=== PATIENT | male | born 1955 | race African-American/Black ===

== ENCOUNTER 2017-06-23 21:52 | Inpatient (IN) | payer OTHER ==
--- NOTE | 2017-06-23 22:05 | PDOC ---
History of Present Illness - History of Present Illness Initial Comments: 06/23/17 22:59 The patient is a 61-year-old male, with a significant past medical history of HTN and CHF, who presents to the ED with shortness of breath that began this afternoon. The patient works at a post office and states that his boss called 911 when when his shortness of breath worsened. [facility] arrived to the scene and transported the patient to the ED. On exam, the patient denies any fever, chills, cough, or headache. He denies any chest pain or palpitations. He reports that he has been noncompliant with his medications for approximately 2 weeks. PCP: Dr. Morteza Collado Social Hx: The patient reports occasional alcohol use. <Noelle Patel - Last Filed: 06/24/17 00:08> <Angel An - Last Filed: 06/24/17 01:38> - General Chief Complaint: Shortness of Breath Stated Complaint: SOB Time Seen by Provider: 06/23/17 22:05 Past History <Noelle Patel - Last Filed: 06/24/17 00:08> - Past Medical History CHF: Yes HTN: Yes - Immunization History Immunization Up to Date: Yes - Suicide/Smoking/Psychosocial Hx Smoking Status: No Smoking History: Never smoked Number of Cigarettes Smoked Daily: 0 Hx Alcohol Use: No Drug/Substance Use Hx: No Substance Use Type: None Hx Substance Use Treatment: No <Angel An - Last Filed: 06/24/17 01:38> - Past Medical History Allergies/Adverse Reactions: Allergies Allergy/AdvReac Type Severity Reaction Status Date / Time No Known Allergies Allergy Verified 06/23/17 22:09 Home Medications: Ambulatory Orders NK [No Known Home Medication] 06/23/17 Review of Systems - Review of Systems Able to Perform ROS?: Yes Comments:: 06/23/17 23:00 CONSTITUTIONAL: No fever, no chills, no fatigue EYES: No visual changes ENT: No ear pain, no sore throat CARDIOVASCULAR: No chest pain, no palpitations RESPIRATORY: (+)Shortness of breath. No cough GI: No abdominal pain, no nausea, no vomiting, no constipation, no diarrhea GENITOURINARY: No dysuria, no frequency, no hematuria MUSKULOSKELETAL: No backpain, no joint pain, no myalgias SKIN: No rash NEURO: No headache <Noelle Patel - Last Filed: 06/24/17 00:08> *Physical Exam - Vital Signs Last Vital Signs Temp Pulse Resp BP Pulse Ox 98.3 F 95 H 22 135/78 93 L 06/23/17 21:55 06/23/17 21:55 06/23/17 21:55 06/23/17 21:55 06/23/17 21:55 - Physical Exam Comments: 06/23/17 23:01 CONSTITUTIONAL: Well-appearing; well-nourished; in no apparent distress HEAD: Normocephalic; atraumatic EYES: PERRL; EOM intact ENMT: External appears normal; normal oropharynx NECK: Supple; non-tender; no cervical lymphadenopathy CARD: Normal S1, S2; no murmurs, rubs, or gallops RESP: (+)Tachypnic, speaking short phrases only, Decreased breath sounds at right base ABD: Soft, non-distended; non-tender; no palpable organomegaly, no palpable hernias EXT: (+)+1 pitting edema lower extremities bilaterally. Normal ROM in all four extremities; non-tender to palpation; distal pulses intact SKIN: Warm, dry, no rash NEURO: No focal neurological deficiencies. <Noelle Patel - Last Filed: 06/24/17 00:08> Heart Score/ECG Review - ECG Intrepretation Comment:: 06/23/17 23:01 EKG was reviewed by Dr. An at 22:47. Impression: Normal sinus rhythm. Voltage criteria for left ventricular hypertrophy. T wave abnormality, consider inferolateral ischemia. Prolonged QT. <Noelle Patel - Last Filed: 06/24/17 00:08> ED Treatment Course - LABORATORY CBC & Chemistry Diagram: 06/23/17 22:45 06/23/17 22:45 <Noelle Patel - Last Filed: 06/24/17 00:08> - LABORATORY CBC & Chemistry Diagram: 06/23/17 22:45 06/23/17 22:45 <Angel An - Last Filed: 06/24/17 01:38> Medical Decision Making - Medical Decision Making 06/24/17 00:32 atient is 61-year-old male with history of heart failure (noncompli) presents tertion that became more pronounced on the day of arrival. Patient denies chest par/chills/nausea/voiting/melena/ bright red blood per rectum. On initial evaluation, patient is noted to be tachypneic and dyspneic, with oxygen saturation of 86% on room air, improving to 94% on supplemental O2 via nasal cannula at 2 L/m. Patient is noted to be afebrile and normotensive. Patient's chest x-ray reveals cardiomegaly, cephalization, bilateral pleural effusions ( right greater than left), interstitial edema, curly B-lines, bilaterally prominent franky and fluid in the fissure on the right. EKG shows normal sinus rhythm at a rate of 90, with LVH and diffuse T-wave abnormalities likely related to LVH and strain. Patient's d-dimer is also noted to be elevated. Differential diagnoses includes PE versus acute CHF exacerbation versus ACS. First set of cardiac enzymes within normal limit. Patient has received 40 mg of IV Lasix and has diuresis 1200 mL of clear urine at this time. Will obtain CTA of chest to rule out PE. Will admit to telemetry further evaluation and treatment. We will anticoagulate if the CT is noted to be positive for PE. 06/24/17 01:35 Patient reassessed. Patient is resting comfortably. His tachypnea and dyspnea have resolved. Oxygen saturation is noted to be 100% on 4 L via nasal cannula. We'll decrease supplemental O2 to 2 L/m. Patient has diuresed over 1400 mL of clear urine. CT of chest shows no evidence of acute PE. 4.9 cm aneurysmal dilation of ascending aorta is noted. Bilateral upper lobe infiltrates are identified by radiology which are likely related to acute CHF and do not represent an acute infectious process. Patient is afebrile without any cough or sputum production at this time. CBC shows no evidence of leukocytosis. Patient will be admitted to cardiac telemetry for serial cardiac enzymes, continue his diuresis and cardiology evaluation. <Angel An - Last Filed: 06/24/17 01:38> *DC/Admit/Observation/Transfer - Attestations Scribe Attestion: 06/24/17 00:28 Documentation prepared by Noelle Patel, acting as certified medical technician assistant for Angel An MD. <Noelle Patel - Last Filed: 06/24/17 00:08> - Discharge Dispostion Admit: Yes - Attestations Physician Attestion: 06/24/17 00:32 The documentation was prepared by the scribe under my direct supervision. I have reviewed the documentation which correctly represents the findings, medical decision-making and critical action taken by me. <Angel An - Last Filed: 06/24/17 01:38> Diagnosis at time of Disposition: Acute CHF Qualifiers: Congestive heart failure type: unspecified Qualified Code(s): I50.9 - Heart failure, unspecified - Discharge Dispostion Condition at time of disposition: Fair - Referrals Referrals: Morteza Collado MD [Primary Care Provider] - - Patient Instructions - Post Discharge Activity
[2017-06-23] MEDS ORDERED: FUROSEMIDE 40 MG/4 ML INJECTABLE VIAL IVPUSH ONE (22:34)
[2017-06-23] MEDS ORDERED: FUROSEMIDE 40 MG/4 ML INJECTABLE VIAL ONE (22:48)
[2017-06-23 22:59] LABS: BASO % 0.3 % (0-2.0); EOS % 0.5 % (0-4.5); HEMATOCRIT 37.4 % (35.4-49); HEMOGLOBIN 12.1 GM/dL (11.7-16.9); MCH 29.9 pg (25.7-33.7); MCHC 32.5 g/dl (32.0-35.9); MEAN CELL VOLUME 91.9 fl (80-96); MEAN PLT VOLUME 10.4 fl (7.5-11.1); NEUT % 73.2 % (42.8-82.8); PLATELET COUNT 206 K/MM3 (134-434); RBC 4.07 M/mm3 (4.00-5.60)
[2017-06-23 23:19] LABS: ALBUMIN 3.5 g/dl (3.4-5.0); ANION GAP 8 (8-16); BILIRUBIN,TOTAL 1.8 mg/dL (0.2-1.0); BLOOD UREA NITROGEN 12 mg/dL (7-18); CALCIUM 8.7 mg/dL (8.5-10.1); CHLORIDE 103 mmol/L (98-107); CO2 31 mmol/L (21-32); CREATININE 1.1 mg/dL (0.7-1.3); GLUCOSE,RANDOM 123 mg/dL (74-106); POTASSIUM 4.1 mmol/L (3.5-5.1); SGOT/AST 23 U/L (15-37); SGPT/ALT 39 U/L (12-78); SODIUM 142 mmol/L (136-145); TOT PROT 6.8 g/dl (6.4-8.2)
[2017-06-23 23:21] LABS: ALK PHOS 72 U/L (45-117)
[2017-06-23 23:49] LABS: INR 1.12 (0.82-1.09); PROTHROMBIN TIME (PATIENT) 12.7 SEC (9.98-11.88)
[2017-06-24 02:36] LABS: N-TERMINAL BNP 1943.46 pg/ml (5-125)
[2017-06-24] MEDS ORDERED: ACETAMINOPHEN 325 MG TABLET (FP) PO PRN (02:59)
--- NOTE | 2017-06-24 03:00 | HP ---
CHIEF COMPLAINT: "I couldn't breathe at work" PCP: none. 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 Patient has been in usual health NYHA 0 until last night when he started feeling fatigued. Today at work he suddenly became severely sob and his employer called EMS. 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 He reports having a history of abnormal EKG since youth as well as a murmur. 20 years ago he underwent a positive stress test and a negative cardiac cath w/p stent placement due to his abnormal EKG findings. He was first diagnosed with CHF 12 years ago and has been on coreg and "3 other medications", with biannual TTE's until about a year ago, when his got sick and he began neglecting himself. He states that the TTE from 1 yr ago was stable. He stopped taking all of his cardiac meds in Jan. He reports salty eating fast food 3 days ago. Initially in ED O2 sat was 92% on ra, was placed on 4LNC but reduced to 2L after diuresis and symptomatic improvement.He denies CP, cough, orthopnea (sleeps on 1 pillow) palpitations, syncope, irregular heart rate, n/v, diaphoresis, loss of appetite, weight gain, LE edema. He denies f/c, rhinorrhea, sore throat, diarrhea, dysuria. ER course was notable for: (1)labs: elevated BNP 1900, EKG: LV hypertrophy with strain patern, nonspecific t inversion in lateral leads (2)CTA negative for PE, cardiomegaly, large LV, ascending aorta aneurysm 4.9 cm. CXR: large b/l pleural effusions L>R, cardiomegaly, vascular engorgement (3)lasix iv 40 Recent Travel:denies PAST MEDICAL HISTORY:as above PAST SURGICAL HISTORY: cholecystectoly, cardiac cath Social History: lives at home alone, distressed about sick in hospice Smoking: past heavy smoker 40 pack yrs, quit 15 yrs ago Alcohol:denies Drugs: denies Family History: htn Allergies No Known Allergies Allergy (Verified 06/23/17 22:09) HOME MEDICATIONS: Home Medications Medication Instructions Recorded NK [No Known Home Medication] 06/23/17 REVIEW OF SYSTEMS CONSTITUTIONAL: Absent: fever, chills, diaphoresis, generalized weakness, malaise, loss of appetite, weight change HEENT: Absent: rhinorrhea, nasal congestion, throat pain CARDIOVASCULAR: Absent: chest pain, syncope, palpitations, irregular heart rate, lightheadedness , peripheral edema RESPIRATORY: Absent: cough, orthopnea, wheezing, stridor, hemoptysis GASTROINTESTINAL: Absent: abdominal pain, abdominal distension, nausea, vomiting, diarrhea, constipation, melena, hematochezia GENITOURINARY: Absent: dysuria MUSCULOSKELETAL: Absent: back pain, neck pain SKIN: Absent: rash, itching, pallor HEMATOLOGIC/IMMUNOLOGIC: Absent: easy bleeding, easy bruising ENDOCRINE: Absent: unexplained weight gain, unexplained weight loss, heat intolerance, cold intolerance NEUROLOGIC: Absent: headache, focal weakness or paresthesias PSYCHIATRIC: Absent: anxiety PHYSICAL EXAMINATION Vital Signs - 24 hr 06/23/17 21:55 Temperature 98.3 F Pulse Rate 95 H Respiratory 22 Rate Blood Pressure 135/78 O2 Sat by Pulse 93 L Oximetry (%) GENERAL: Awake, alert, and fully oriented, in no acute distress. HEAD: Normal with no signs of trauma. EYES: Pupils equal, round and reactive to light, extraocular movements intact, sclera anicteric, conjunctiva clear. No lid lag. EARS, NOSE, THROAT: Moist mucous membranes. NECK: supple, + hepatojugular reflex at 30 degree recline LUNGS:reduced breath sounds at bases HEART: Regular rate and rhythm, normal S1 and S2 grade 3 systolic and diastolic murmur ABDOMEN: Soft, nontender, not distended, normoactive bowel sounds, no guarding, no rebound, no masses. MUSCULOSKELETAL: no CVA tenderness. UPPER EXTREMITIES: 2+ pulses, warm, well-perfused. No peripheral edema. LOWER EXTREMITIES: 1+ pulses, warm, well-perfused. No calf tenderness. trace peripheral edema. NEUROLOGICAL: Cranial nerves II-XII intact. Normal speech. PSYCHIATRIC: Cooperative. Good eye contact. slightly depressed mood and flattened affect. SKIN: Warm, dry Laboratory Results - last 24 hr 06/23/17 06/23/17 06/23/17 22:45 22:45 22:45 WBC 9.0 RBC 4.07 Hgb 12.1 Hct 37.4 MCV 91.9 MCH 29.9 MCHC 32.5 RDW 14.0 Plt Count 206 MPV 10.4 Neutrophils % 73.2 D Lymphocytes % 15.0 D Monocytes % 11.0 H Eosinophils % 0.5 Basophils % 0.3 PT with INR 12.70 H INR 1.12 D-Dimer 1326 H Sodium 142 Potassium 4.1 Chloride 103 Carbon Dioxide 31 Anion Gap 8 BUN 12 Creatinine 1.1 Creat Clearance w eGFR > 60 Random Glucose 123 H Calcium 8.7 Total Bilirubin 1.8 H AST 23 D ALT 39 Alkaline Phosphatase 72 D Creatine Kinase 400 H Creatine Kinase Index 0.6 CK-MB (CK-2) 2.424 Troponin I 0.03 B-Natriuretic Peptide 1943.46 H Total Protein 6.8 Albumin 3.5 ASSESSMENT/PLAN: This is a 61 yo M with PMH of CHF, BIBEMs due to severe sob. Acute CHF exacerbation NYHA 3 -etiology presumable nonishemic however unsure -EKG consistent with LV hypertrophy and strain, nonspecific t changes -trop negatie x1, trend 1 more -CXR large b/l pleural effusions L>R, cardiomegaly, vascular engorgement -DDimer 1300, CTA negative for PE, cardiomegaly, large LV, ascending aorta aneurysm 4.9 cm. -will need regular thoracic surg f/u -bedside TTE done by resident: dilated hypokinetic LV with septal hypertrophy, large RV -TTE AM -cardiology consult -lasix 40 iv bid; monitor UO (so far diuresed 2L clear urine) -coreg 3.125 bid starting AM -close f/u of bp and O2 sat -strict i and o, daily weights -will need to be placed on angela or arb or entresto and possibly aldactone over hospital course -TFT's, a1c, lipid panel -low na diet -screen for depression Dispo: admit tele Problem List - Problem (1) Acute CHF Code(s): I50.9 - HEART FAILURE, UNSPECIFIED Qualifiers: Congestive heart failure type: unspecified Qualified Code(s): I50.9 - Heart failure, unspecified (2) Acute on chronic congestive heart failure Code(s): I50.9 - HEART FAILURE, UNSPECIFIED Qualifiers: Congestive heart failure type: combined Qualified Code(s): I50.43 - Acute on chronic combined systolic (congestive) and diastolic (congestive) heart failure (3) HTN (hypertension) Code(s): I10 - ESSENTIAL (PRIMARY) HYPERTENSION Qualifiers: Hypertension type: essential hypertension Qualified Code(s): I10 - Essential (primary) hypertension (4) Hypertensive cardiomegaly with heart failure Code(s): I11.0 - HYPERTENSIVE HEART DISEASE WITH HEART FAILURE (5) Noncompliance with medication regimen Code(s): Z91.14 - PATIENT'S OTHER NONCOMPLIANCE WITH MEDICATION REGIMEN (6) Thoracic ascending aortic aneurysm Code(s): I71.2 - THORACIC AORTIC ANEURYSM, WITHOUT RUPTURE Visit type - Emergency Visit Emergency Visit: Yes ED Registration Date: 06/24/17 Care time: The patient presented to the Emergency Department on the above date and was hospitalized for further evaluation of their emergent condition. - New Patient This patient is new to me today: Yes Date on this admission: 06/28/17 - Critical Care Critical Care patient: No
--- NOTE | 2017-06-24 03:25 | HP ---
CHIEF COMPLAINT: Acute SOB PCP: Dr. Collado HISTORY OF PRESENT ILLNESS: 61 yo w/ pmh of CHF, heart murmur, who was BIBEMS from work after becoming acutely SOB. Pt has been in his normal state of health with unlimited exercise tolerance last night, when he endorse some mild fatigue. 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 Of note, pt was diagnosed with CHF ~10 years ago and has been taking BB, two diuretics and a 4th medication for his heart. However, Pt has been non-compliant with his medication since Jan, as his is in hospice and he has neglected to refill his prescriptions. Etiology of CHF is unknown, however pt states he underwent a positive stress test 15-20 years ago and received a cardiac catheterization after that, which was normal. He received an ECHO one year ago, which he stated had no change from his baseline. Pt states he follows with a Dr. Villalobos and received Echos every 6 months. Pt reports eating [employer] 3 days ago. Denies fevers/chills, SQUIRES/dizziness, CP, cough, PND, orthopnea, claudications, palpitations, LE edema, N/V, abdominal pain, weight gain or decreased appetite. Denies any infectious symptoms such as sore throat, dyuria, diarrhea, rhinorrhe, rigors. ER course was notable for: (1)CXR w/ BL vascular congestion, pleural effusions; satting 92% on RA, placed on 4L NC and given 40mg Lasix IV with improvement to 100% (2)Chest CT negative for PE, + for LVH; Ddimer 1326 (3)BNP 1943 Recent Travel: None PAST MEDICAL HISTORY: HTN CHF Heart Murmur PAST SURGICAL HISTORY: Lap Beatris Cardiac cath (15 years ago) Social History: Smoking: Denies Alcohol: Denies Drugs: Denies Family History: Hypertension Allergies No Known Allergies Allergy (Verified 06/23/17 22:09) HOME MEDICATIONS: Home Medications Medication Instructions Recorded NK [No Known Home Medication] 06/23/17 REVIEW OF SYSTEMS CONSTITUTIONAL: Absent: fever, chills, diaphoresis, generalized weakness, malaise, loss of appetite, weight change HEENT: Absent: rhinorrhea, nasal congestion, throat pain, throat swelling, difficulty swallowing, mouth swelling, ear pain, eye pain, visual changes CARDIOVASCULAR: Absent: chest pain, syncope, palpitations, irregular heart rate, lightheadedness , peripheral edema RESPIRATORY: shortness of breath, Absent: cough, dyspnea with exertion, orthopnea, wheezing, stridor, hemoptysis GASTROINTESTINAL: Absent: abdominal pain, abdominal distension, nausea, vomiting, diarrhea, constipation, melena, hematochezia GENITOURINARY: Absent: dysuria, frequency, urgency, hesitancy, hematuria, flank pain, genital pain MUSCULOSKELETAL: Absent: myalgia, arthralgia, joint swelling, back pain, neck pain SKIN: Absent: rash, itching, pallor HEMATOLOGIC/IMMUNOLOGIC: Absent: easy bleeding, easy bruising, lymphadenopathy, frequent infections ENDOCRINE: Absent: unexplained weight gain, unexplained weight loss, heat intolerance, cold intolerance NEUROLOGIC: Absent: headache, focal weakness or paresthesias, dizziness, unsteady gait, seizure, mental status changes, bladder or bowel incontinence PSYCHIATRIC: Absent: anxiety, depression, suicidal or homicidal ideation, hallucinations. PHYSICAL EXAMINATION Vital Signs - 24 hr Intake & Output 06/21/17 06/22/17 06/23/17 06/24/17 23:59 23:59 23:59 23:59 Output Total 800 500 Balance -800 -500 Weight 104.326 kg 06/23/17 06/24/17 21:55 03:01 Temperature 98.3 F Pulse Rate 95 H Pulse Rate [ 83 Left] Respiratory 22 18 Rate Blood Pressure 135/78 Blood Pressure 125/68 [Right Arm] O2 Sat by Pulse 93 L 97 Oximetry (%) GENERAL: Middle aged man lying in bed, in NAD. Awake, alert, and fully oriented , in no acute distress. HEAD: Alopecia. Normal with no signs of trauma. EYES: Mild proptosis BL. Pupils equal, round and reactive to light, extraocular movements intact, sclera anicteric, conjunctiva clear. No lid lag. EARS, NOSE, THROAT: Ears normal, nares patent, oropharynx clear without exudates. Moist mucous membranes. NECK: +HJ reflux. Normal range of motion, supple without lymphadenopathy, JVD, or masses. LUNGS: Decreased lung sounds at bases. Trace crackles diffusely. No wheezes. No accessory muscle use. HEART: 3/6 Systolic and diastolic murmur, best appreciated at RUSB, nonradiating. Regular rate and rhythm, normal S1 and S2. ABDOMEN: Globular, Soft, nontender, not distended, normoactive bowel sounds, no guarding, no rebound, no masses. No hepatomegaly or splenomegaly. Negative fluid wave. MUSCULOSKELETAL: Normal range of motion at all joints. No bony deformities or tenderness. No CVA tenderness. UPPER EXTREMITIES: 2+ pulses, warm, well-perfused. No cyanosis. No clubbing. No peripheral edema. LOWER EXTREMITIES: 1+ non-pitting edema BL. 2+ pulses, warm, well-perfused. No calf tenderness. NEUROLOGICAL: Cranial nerves II-XII intact. Normal speech. Gait not evaluated. PSYCHIATRIC: Cooperative. Good eye contact. Appropriate mood and affect. SKIN: Warm, dry, normal turgor, no rashes or lesions noted, normal capillary refill. Laboratory Results - last 24 hr CBC, BMP 06/23/17 22:45 06/23/17 22:45 06/23/17 06/23/17 06/23/17 22:45 22:45 22:45 WBC 9.0 RBC 4.07 Hgb 12.1 Hct 37.4 MCV 91.9 MCH 29.9 MCHC 32.5 RDW 14.0 Plt Count 206 MPV 10.4 Neutrophils % 73.2 D Lymphocytes % 15.0 D Monocytes % 11.0 H Eosinophils % 0.5 Basophils % 0.3 PT with INR 12.70 H INR 1.12 D-Dimer 1326 H Sodium 142 Potassium 4.1 Chloride 103 Carbon Dioxide 31 Anion Gap 8 BUN 12 Creatinine 1.1 Creat Clearance w eGFR > 60 Random Glucose 123 H Calcium 8.7 Total Bilirubin 1.8 H AST 23 D ALT 39 Alkaline Phosphatase 72 D Creatine Kinase 400 H Creatine Kinase Index 0.6 CK-MB (CK-2) 2.424 Troponin I 0.03 B-Natriuretic Peptide 1943.46 H Total Protein 6.8 Albumin 3.5 Microbiology 06/23/17 22:55 Nasopharyngeal Swab Influenza Types A,B Antigen (YOLIS) - Final 06/23/17 22:55 Nasopharyngeal Swab - Final EKG 06/23 - suggestive of LVH/strain; Diffuse TW changes CXR 06/23: BL vascular condition, pleural effusions. Cardiomegaly Chest CT-PE 06/24 - Negative for PE; LVH; Large BL pleural effusions; Ascending Aortic aneurysm 4.9 cm Bedside TTE done by resident: dilated hypokinetic LV with septal hypertrophy, large RV ASSESSMENT/PLAN: 61 yo w/ pmh of CHF, heart murmur, who was BIBEMS from work after becoming acutely SOB. #Acute on Chronic CHF exacerbation - BNP 1900, CXR with BL vascular congestion and pleural effusions; NYHA class 3 - Cardiology consulted - Lasix 40 BID - Coreg 3.125 BID - Enalapril 5mg daily - Repeat Echo - Serial CXRs - Strict Is and Os - Low sodium, fluid restricted diet - Cardiac monitoring - O2 support as needed - Daily Weights - Tight BP control - TFTs, A1C - CT chest negative for PE; elevated Ddimer 1326 #CAD - + stress test in past; Initial trop negative; No ST changes on EKG - ASA daily - Lipid profile - f/u A1C -Repeat EKG' obtain prior recs #Ascending Aortic Aneurysm - 4.9cm in diameter on CT - recommend CT surgery consult/ outpt follow-up - Tight BP control #HTN - start enalapril PPX HSQ FEN limit PO fluid <2L Daily BMPs, Mg, Phos Low sodium diet Plan discussed with attending, Dr. Jace Mccray, PGY1 Visit type - Emergency Visit Emergency Visit: Yes ED Registration Date: 06/24/17 Care time: The patient presented to the Emergency Department on the above date and was hospitalized for further evaluation of their emergent condition. - New Patient This patient is new to me today: Yes Date on this admission: 06/24/17 - Critical Care Critical Care patient: No
[2017-06-24 04:07] VITALS: BMI 29.4
[2017-06-24] MEDS: HEPARIN NA (PORCINE) 5,000 UNITS/ML 1ML VIAL SQ SCH ×3 (06:09→22:10)
[2017-06-24] MEDS: FUROSEMIDE 40 MG/4 ML INJECTABLE VIAL IVPUSH SCH ×2 (06:09→14:02)
--- NOTE | 2017-06-24 06:31 | PN ---
Teaching Attending Note Name of Resident: David Mccray ATTENDING PHYSICIAN STATEMENT I saw and evaluated the patient. Chart, data, imaging reviewed. I reviewed the resident's note and discussed the case with the resident. I agree with the resident's findings and plan as documented. SUBJECTIVE: 61-year-old -citizen of [place] man, with a significant past medical history of HTN and CHF presented c/o 1 day of shortness of breath and decreased exercise tolerance. Patient has been off his cardiac medications for several weeks and has missed appointments with his PMD. He denied any chest pain. He sleeps only on one pillow. Denied any significant weight changes. Reports a "stable" echo about one year ago. In the ED , patient had an oxygen saturation of low 90s, was placed on supplemental oxygen. CT of chest ruled out PE. He reports improvement in symptoms after IV Furosemide. OBJECTIVE: Last Vital Signs Temp Pulse Resp BP Pulse Ox 97.8 F 94 H 18 136/65 99 06/24/17 04:01 06/24/17 04:01 06/24/17 04:01 06/24/17 04:01 06/24/17 04:01 General - nad, aaox3, appears comfortable heent- at, nc, moist oral mucosa neck- supply, no JVD appreciated CV-s1+s2+ RRR, gallop+ Chest - decreased breath sounds b/l R>L Abdomen -obese, BS+, no masses appreciated Ext- 2+ pitting edema in lower extremities Abnormal Lab Results 06/23/17 06/23/17 06/23/17 22:45 22:45 22:45 Monocytes % 11.0 H PT with INR 12.70 H D-Dimer 1326 H Random Glucose 123 H Total Bilirubin 1.8 H Creatine Kinase 400 H B-Natriuretic Peptide 1943.[address]- negative for PE, showed b/l pleural effusion, pulmonary vascular congestion. EKG - NSR, diffuse T wave inversions, no ST elevations or depressions ASSESSMENT AND PLAN: #CHF exacerbation 2/2 to medication noncompliance and diet noncompliance. High BNP, B/l pleural effusions and pulmonary vascular congestion are suggestive of CHF. +physical exam findings such as decreased breath sounds at bases, +gallop, pedal edema support this diagnosis as well. PE was r/o. R/o ACS with serial troponins. -admit to telemetry -trend troponin -cardiology evaluation -transthoracic echo -repeat EKG -I/O -daily weight -2g Na diet -send A1c -Furosemide 40mg IV bid -B emmanuel -ACEi -spironolactone -ASA #DVT ppx - heparin sc
[2017-06-24 07:42] LABS: HEMATOCRIT 39.7 % (35.4-49); HEMOGLOBIN 12.9 GM/dL (11.7-16.9); MCH 29.9 pg (25.7-33.7); MCHC 32.4 g/dl (32.0-35.9); MEAN CELL VOLUME 92.1 fl (80-96); MEAN PLT VOLUME 10.2 fl (7.5-11.1); PLATELET COUNT 205 K/MM3 (134-434); RBC 4.31 M/mm3 (4.00-5.60); RDW 14.2 % (11.9-15.9); WHITE BLOOD COUNT 7.2 K/mm3 (4.0-10.0)
[2017-06-24 08:03] LABS: CHLORIDE 103 mmol/L (98-107); POTASSIUM 3.8 mmol/L (3.5-5.1); SODIUM 142 mmol/L (136-145)
[2017-06-24 08:09] LABS: ALBUMIN 3.7 g/dl (3.4-5.0); ALK PHOS 80 U/L (45-117); ANION GAP 9 (8-16); BILIRUBIN,TOTAL 2.4 mg/dL (0.2-1.0); BLOOD UREA NITROGEN 11 mg/dL (7-18); CALCIUM 8.5 mg/dL (8.5-10.1); CHOLESTEROL 149 mg/dL (50-200); CO2 30 mmol/L (21-32); CREATININE 1.1 mg/dL (0.7-1.3); GLUCOSE,RANDOM 111 mg/dL (74-106); HDL CHOLESTEROL 52 mg/dL (40-60); LDL CHOLESTEROL (ONLY SJRH) 94 mg/dL (5-100); N-TERMINAL BNP 2116.79 pg/ml (5-125); PHOSPHOROUS 3.6 mg/dL (2.5-4.9); SGOT/AST 21 U/L (15-37); SGPT/ALT 37 U/L (12-78); TOT PROT 6.8 g/dl (6.4-8.2); TRIGLYCERIDES 62 mg/dL (35-160)
[2017-06-24 08:23] LABS: INR 1.16 (0.82-1.09); PROTHROMBIN TIME (PATIENT) 13.1 SEC (9.98-11.88)
[2017-06-24] MEDS ORDERED: PT OWN MED DRAWER 7, Y5N ONE (08:55)
[2017-06-24] MEDS ORDERED: CARVEDILOL 3.125 MG TABLET (FP) PO SCH (10:00)
[2017-06-24] MEDS: ASPIRIN 81 MG CHEWABLE TABLETS PO SCH (10:07)
--- NOTE | 2017-06-24 11:28 | HOSP ---
Subjective - Review of Symptoms Subjective: states he asymptomatic. no longer feeling short of breath but has not gotten out of bed today. states he has not taken his medication in several months as hes been taking care of his who is currently on hospice. states he lives very active lifestyle which he has not been able to maintain. denies CP, SOB, fever, chills, cough, orthopnea, N/V/C/D Current Medications Generic Name Dose Route Start Last Admin Trade Name Freq PRN Reason Stop Dose Admin Acetaminophen 650 mg 06/24/17 02:59 Tylenol - PO Q6H PRN PAIN LEVEL 4 - 6 Aspirin 81 mg 06/24/17 10:00 06/24/17 10:07 Asa - PO 81 mg DAILY BONNIE Administration Carvedilol 3.125 mg 06/24/17 10:00 06/24/17 10:07 Coreg - PO 3.125 mg BID BONNIE Administration Enalapril Maleate 5 mg 06/24/17 10:00 Vasotec - PO DAILY BONNIE Furosemide 40 mg 06/24/17 06:00 06/24/17 06:09 Lasix Injection - IVPUSH 40 mg BID@0600,1400 BONNIE Administration Heparin Sodium (Porcine) 5,000 unit 06/24/17 06:00 06/24/17 06:09 Heparin - SQ 5,000 unit TID BONNIE Administration Last Vital Signs Temp Pulse Resp BP Pulse Ox 97.8 F 80 18 122/56 99 06/24/17 10:00 06/24/17 10:00 06/24/17 10:00 06/24/17 10:00 06/24/17 10:00 Intake & Output 06/21/17 06/22/17 06/23/17 06/24/17 23:59 23:59 23:59 23:59 Intake Total 260 Output Total 800 2805 Balance -800 -2545 Weight 230 lb 222 lb 8 oz General NAD CV S1 S2 RRR no murmur/rub/gallop Lungs CTA B/L no wheezing/rales/rhonchi Abdomen soft NT/ND Extremities no pedal edema CBCD WBC 7.2 K/mm3 (4.0-10.0) 06/24/17 06:00 RBC 4.31 M/mm3 (4.00-5.60) 06/24/17 06:00 Hgb 12.9 GM/dL (11.7-16.9) 06/24/17 06:00 Hct 39.7 % (35.4-49) 06/24/17 06:00 MCV 92.1 fl (80-96) 06/24/17 06:00 MCHC 32.4 g/dl (32.0-35.9) 06/24/17 06:00 RDW 14.2 % (11.9-15.9) 06/24/17 06:00 Plt Count 205 K/MM3 (134-434) 06/24/17 06:00 MPV 10.2 fl (7.5-11.1) 06/24/17 06:00 CMP Sodium 142 mmol/L (136-145) 06/24/17 06:00 Potassium 3.8 mmol/L (3.5-5.1) 06/24/17 06:00 Chloride 103 mmol/L (98-107) 06/24/17 06:00 Carbon Dioxide 30 mmol/L (21-32) 06/24/17 06:00 Anion Gap 9 (8-16) 06/24/17 06:00 BUN 11 mg/dL (7-18) 06/24/17 06:00 Creatinine 1.1 mg/dL (0.7-1.3) 06/24/17 06:00 Creat Clearance w eGFR > 60 (>60) 06/24/17 06:00 Random Glucose 111 mg/dL (74-106) H 06/24/17 06:00 Calcium 8.5 mg/dL (8.5-10.1) 06/24/17 06:00 Total Bilirubin 2.4 mg/dL (0.2-1.0) H D 06/24/17 06:00 AST 21 U/L (15-37) 06/24/17 06:00 ALT 37 U/L (12-78) 06/24/17 06:00 Alkaline Phosphatase 80 U/L (45-117) 06/24/17 06:00 Total Protein 6.8 g/dl (6.4-8.2) 06/24/17 06:00 Albumin 3.7 g/dl (3.4-5.0) 06/24/17 06:00 CARDIAC ENZYMES Creatine Kinase 400 IU/L (39-308) H 06/23/17 22:45 Troponin I 0.04 ng/ml (0.00-0.05) D 06/24/17 06:00 A/P 61yo M with PMH HTN and CHF presented to the ER with dyspnea x1day 1. Acute CHF- unknown systolic or diastolic as no previous echos however suspect systolic given home medications. no change in weight. cont lasix 40mg BID IV, confirm home medications with pharmacy and re-start them. echo ordered. cardio on board 2. Acute hypoxic respiratory failure- due to volume overload. currently 96% on RA. encouraged to get up and ambulate to see if symptoms 3. Ascending Aortic aneurysm- 4.7cm. asymptomatic. no known hx. will need repeat imaging 4. CKD- stable 5. HTN- controlled. 6. DVT ppx- hep sq 7. pt would prefer to go home if able to due to his ailing who is on hospice. will d/w cardio about possible letting him leave in AM and return for echo this week. Claims he would comply 8. called [facility] and confirmed home medications. states its been 3 months since he picked up. will re-start medications lisinopril 40mg lasix 40mg spirolactone 25mg Coreg 12.5mg BID Physical Examination Vital Signs: Vital Signs Temperature 97.8 F 06/24/17 10:00 Pulse Rate 80 06/24/17 10:00 Respiratory Rate 18 06/24/17 10:00 Blood Pressure 122/56 06/24/17 10:00 O2 Sat by Pulse Oximetry (%) 99 06/24/17 10:00 Labs: CBC, BMP 06/24/17 06:00 06/24/17 06:00
--- NOTE | 2017-06-24 12:10 | EKG ---
Test Reason : Blood Pressure : / mmHG Vent. Rate : 090 BPM Atrial Rate : 090 BPM P-R Int : 186 ms QRS Dur : 100 ms QT Int : 398 ms P-R-T Axes : 055 027 216 degrees QTc Int : 486 ms NORMAL SINUS RHYTHM VOLTAGE CRITERIA FOR LEFT VENTRICULAR HYPERTROPHY T WAVE ABNORMALITY, CONSIDER INFEROLATERAL ISCHEMIA PROLONGED QT ABNORMAL ECG Confirmed by MD PANCHO, RAFFI ([id number]) on 06/24/2017 12:09:57 PM Referred By: Confirmed By:RAFFI DELEON MD
--- NOTE | 2017-06-24 12:39 | CON.CARD ---
Consult Consult Specialty:: Cardiology Referred by:: Hospitalist Reason for Consultation:: Cardiac evaluation - History of Present Illness Chief Complaint: Shortness of breath History of Present Illness: Patient is a 61 year old male with underlying history of hypertension and congestive heart failure, was seen by Dr. Rickey Villalobos last saw him in February of last year, now present with worsening shortness of breath. He has been non-compliant with his medication since January when his became severely ill and currently is in hospice. He stopped taking all his medications. He has had cardiac work up including transthoracic echocardiogram, nuclear stress testing and cardiac catheterization in the past. Currently he feel better with absence of shortness of breath. He denies chest pain or palpitation. He denies paroxsmal nocturnal dysnea or orthopnea. He denies fever or chills. He denies nausea, vomiting, diarrhea or abdominal pain. Cardiology consultation was called for further evaluation. - History Source History Provided By: Patient, Medical Record Limitations to Obtaining History: No Limitations - Past Medical History Cardio/Vascular: Yes: CHF, HTN - Past Surgical History Past Surgical History: Yes: Cholecystectomy - Alcohol/Substance Use Hx Alcohol Use: No - Smoking History Smoking history: Never smoked Have you smoked in the past 12 months: No Aproximately how many cigarettes per day: 0 If you are a former smoker, when did you quit?: 2005 Home Medications - Allergies Allergies/Adverse Reactions: Allergies Allergy/AdvReac Type Severity Reaction Status Date / Time No Known Allergies Allergy Verified 06/23/17 22:09 - Home Medications Home Medications: Ambulatory Orders NK [No Known Home Medication] 06/23/17 Review of Systems - Review of Systems Constitutional: denies: Chills, Fever Eyes: reports: No Symptoms HENT: reports: No Symptoms Cardiovascular: reports: Shortness of Breath. denies: Chest Pain, Palpitations Respiratory: reports: SOB, SOB on Exertion. denies: Cough, Hemoptysis, Orthopnea, PND, Wheezing Gastrointestinal: denies: Abdominal Pain, Constipation, Diarrhea, Melena, Nausea , Rectal Bleeding, Vomiting Musculoskeletal: denies: Back Pain, Joint Pain Neurological: denies: Dizziness, Headache, Seizure, Syncope Endocrine: reports: No Symptoms Hematology/Lymphatic: reports: No Symptoms Vital Signs: Vital Signs Temperature 97.8 F 06/24/17 10:00 Pulse Rate 80 06/24/17 10:00 Respiratory Rate 18 06/24/17 10:00 Blood Pressure 122/56 06/24/17 10:00 O2 Sat by Pulse Oximetry (%) 99 06/24/17 10:00 Eyes: Yes: PERRL HENT: Yes: Atraumatic Neck: Yes: Supple Respiratory: Yes: Diminished Gastrointestinal: Yes: Normal Bowel Sounds, Soft. No: Tenderness Cardiovascular: Yes: Regular Rate and Rhythm. No: Gallop JVD: No Carotid Bruit: No PMI: Non-Displaced Heart Sounds: Yes: S1, S2, Clicks Murmur: Yes: Systolic Murmur, Grade 1 Edema: No - Other Data Labs, Other Data: CBC, BMP 06/24/17 06:00 06/24/17 06:00 INR, PTT INR 1.16 (0.82-1.09) H 06/24/17 06:00 Troponin, BNP 06/23/17 06/24/17 22:45 06:00 Troponin I 0.03 0.04 D B-Natriuretic Peptide 1943.46 H 2116.79 H Laboratory Results - last 24 hr 06/23/17 06/23/17 06/23/17 22:45 22:45 22:45 WBC 9.0 RBC 4.07 Hgb 12.1 Hct 37.4 MCV 91.9 MCH 29.9 MCHC 32.5 RDW 14.0 Plt Count 206 MPV 10.4 Neutrophils % 73.2 D Lymphocytes % 15.0 D Monocytes % 11.0 H Eosinophils % 0.5 Basophils % 0.3 PT with INR 12.70 H INR 1.12 D-Dimer 1326 H Sodium 142 Potassium 4.1 Chloride 103 Carbon Dioxide 31 Anion Gap 8 BUN 12 Creatinine 1.1 Creat Clearance w eGFR > 60 Random Glucose 123 H Hemoglobin A1c % Calcium 8.7 Phosphorus Magnesium Total Bilirubin 1.8 H AST 23 D ALT 39 Alkaline Phosphatase 72 D Creatine Kinase 400 H Creatine Kinase Index 0.6 CK-MB (CK-2) 2.424 Troponin I 0.03 B-Natriuretic Peptide 1943.46 H Total Protein 6.8 Albumin 3.5 Triglycerides Cholesterol Total LDL Cholesterol HDL Cholesterol 06/24/17 06/24/17 06/24/17 06:00 06:00 06:00 WBC 7.2 RBC 4.31 Hgb 12.9 Hct 39.7 MCV 92.1 MCH 29.9 MCHC 32.4 RDW 14.2 Plt Count 205 MPV 10.2 Neutrophils % Lymphocytes % Monocytes % Eosinophils % Basophils % PT with INR 13.10 H INR 1.16 H D-Dimer Sodium 142 Potassium 3.8 Chloride 103 Carbon Dioxide 30 Anion Gap 9 BUN 11 Creatinine 1.1 Creat Clearance w eGFR > 60 Random Glucose 111 H Hemoglobin A1c % Calcium 8.5 Phosphorus 3.6 Magnesium 2.0 Total Bilirubin 2.4 H D AST 21 ALT 37 Alkaline Phosphatase 80 Creatine Kinase Creatine Kinase Index CK-MB (CK-2) Troponin I 0.04 D B-Natriuretic Peptide 2116.79 H Total Protein 6.8 Albumin 3.7 Triglycerides 62 Cholesterol 149 Total LDL Cholesterol 94 HDL Cholesterol 52 Sinus rhythm, T wave abnormality in inferolateral leads Echo: Pending Imaging - Results Chest X-ray: Report Reviewed (Atelectasis) EKG: Report Reviewed Problem List - Problems (1) Acute on chronic congestive heart failure Code(s): I50.9 - HEART FAILURE, UNSPECIFIED Qualifiers: Congestive heart failure type: combined Qualified Code(s): I50.43 - Acute on chronic combined systolic (congestive) and diastolic (congestive) heart failure (2) HTN (hypertension) Code(s): I10 - ESSENTIAL (PRIMARY) HYPERTENSION Qualifiers: Hypertension type: essential hypertension Qualified Code(s): I10 - Essential (primary) hypertension Assessment/Plan 1. Acute on chronic LV systolic +/- diastolic dysfunction with class II NYHA heart failure 2. Hypertension PLAN: 1. Continue diuretics and monitor I/Os and daily weight 2. Continue Carvedilol and Enalapril as tolerated 3. Continue Spironolactone 4. ASA 5. Transthoracic echocardiography (official study) to assess LV/RV and valvular function. Compare study with prior study with Dr. Villalobos. Further plans are to follow Amilcar Bright MD
[2017-06-24] MEDS: SPIRONOLACTONE 25 MG TABLET (FP) PO SCH (14:02)
[2017-06-24] MEDS: ENALAPRIL MALEATE 5 MG TABLET (FP) PO SCH (14:02)
[2017-06-24] MEDS: CARVEDILOL 3.125 MG TABLET (FP) PO SCH (22:11)
[2017-06-25] MEDS: FUROSEMIDE 40 MG/4 ML INJECTABLE VIAL IVPUSH SCH ×2 (05:50→14:07)
[2017-06-25] MEDS: HEPARIN NA (PORCINE) 5,000 UNITS/ML 1ML VIAL SQ SCH ×3 (05:50→21:30)
[2017-06-25 08:19] LABS: CHLORIDE 99 mmol/L (98-107); POTASSIUM 3.7 mmol/L (3.5-5.1); SODIUM 142 mmol/L (136-145)
[2017-06-25 08:31] LABS: ANION GAP 11 (8-16); BLOOD UREA NITROGEN 15 mg/dL (7-18); CALCIUM 9.2 mg/dL (8.5-10.1); CO2 32 mmol/L (21-32); CREATININE 1.2 mg/dL (0.7-1.3); GLUCOSE,RANDOM 111 mg/dL (74-106); MAGNESIUM 2.2 mg/dL (1.8-2.4)
[2017-06-25] MEDS ORDERED: PT OWN MED DRAWER 7, Y5N ONE (09:28)
[2017-06-25] MEDS: SPIRONOLACTONE 25 MG TABLET (FP) PO SCH (09:29)
[2017-06-25] MEDS: CARVEDILOL 3.125 MG TABLET (FP) PO SCH ×2 (09:29→21:30)
[2017-06-25] MEDS: ENALAPRIL MALEATE 5 MG TABLET (FP) PO SCH (09:29)
[2017-06-25] MEDS: ASPIRIN 81 MG CHEWABLE TABLETS PO SCH (09:29)
--- NOTE | 2017-06-25 12:53 | PN ---
Physical Exam: SUBJECTIVE: Patient seen and examined at bed side this morning. Says he feels sad and crying since his is in Hospice, wants to go home as early as possible. Denies chest pain, sob, cough, palpitation, abdominal pain, nausea or vomiting. Bowel/Bladder habit normal. Sleep/Appetite normal. No acute overnight events. Tele-not significant. OBJECTIVE: Vital Signs Period Temp Pulse Resp BP Sys/Boo Pulse Ox Last 24 Hr 98.1 F-99.4 F 72-108 18-20 107-150/53-65 97-97 GENERAL: The patient is awake, alert, and fully oriented, in no acute distress, sad and crying. HEAD: Normal with no signs of trauma. EYES: EOM intact, no pallor or icterus. ENT: Ears normal, moist mucous membranes. NECK: Supple. LUNGS: B/L Breath sounds equal, minimal bibasilar crackles, no wheezes, no accessory muscle use. HEART: Tachycardic, Regular rate and rhythm, S1, S2 with 3/6 systolic murmur. ABDOMEN: Soft, nontender, nondistended, normoactive bowel sounds, no guarding, no rebound, no hepatosplenomegaly, no masses. UPPER EXTREMITIES: 2+ pulses, warm, well-perfused, no edema. LOWER EXTREMITIES: 2+ pulses, warm, well-perfused, no edema. NEUROLOGICAL: No facial droop, power 5/5 in all extremities. Normal speech, gait not observed. PSYCH: Normal mood, normal affect. SKIN: Warm, dry, normal turgor, no rashes or lesions noted Laboratory Results - last 24 hr 06/25/17 06:20 Sodium 142 Potassium 3.7 Chloride 99 Carbon Dioxide 32 Anion Gap 11 BUN 15 D Creatinine 1.2 Random Glucose 111 H Calcium 9.2 Magnesium 2.2 Active Medications Generic Name Dose Route Start Last Admin Trade Name Freq PRN Reason Stop Dose Admin Acetaminophen 650 mg 06/24/17 02:59 Tylenol - PO Q6H PRN PAIN LEVEL 4 - 6 Aspirin 81 mg 06/24/17 10:00 06/25/17 09:29 Asa - PO 81 mg DAILY BONNIE Administration Carvedilol 12.5 mg 06/24/17 11:59 06/25/17 09:29 Coreg - PO 12.5 mg BID BONNIE Administration Enalapril Maleate 5 mg 06/24/17 10:00 06/25/17 09:29 Vasotec - PO 5 mg DAILY BONNIE Administration Furosemide 40 mg 06/24/17 06:00 06/25/17 05:50 Lasix Injection - IVPUSH 40 mg BID@0600,1400 BONNIE Administration Heparin Sodium (Porcine) 5,000 unit 06/24/17 06:00 06/25/17 05:50 Heparin - SQ 5,000 unit TID BONNIE Administration Spironolactone 25 mg 06/24/17 12:00 06/25/17 09:29 Aldactone - PO 25 mg DAILY BONNIE Administration ASSESSMENT/PLAN: Patient is a 61 year old female with significant past medical history of CHF , CAD s/p cath, heart murmur, cholelithiasis who was BIBEMS from work after becoming acutely SOB. # SOB due to Acute on chronic likely systolic CHF- non compliance to home medication Do not have his past ECHO. Dx to have CHF 10 yrs ago, was on meds but non compliant- pt has been taking care of his who is in hospice Today, SOB has resolved Continue IV Lasix 40mg BID Continue Carvedilol 12.5 mg BID, Enalapril 5mg PO Daily and Spironolactone 25 mg PO Daily Strict I's and O's (-ve 3055 in 24 hrs) Daily weights (lost 10 lbs since yesterday- 222-->211--> 210.6) ECHo in am. Discussed with Dr. Bright. # Ascending Aortic Aneurysm - 4.7 cm in diameter seen on CT chest. F/up as outpatient with vascular. Repeat CT abdomen as outpatient. Patient made aware # Hypertension-controlled Continue Enalapril 5mg PO Daily # FEN Not on IV fluids Electrolytes WNL Sodium Controlled diet # Prophylaxis For DVT:Heparin 5000 IU sq TID For GI: Not indicated # Code Status: Full Code # Dispo: Possible discharge tomorrow after Echo. Illness, Investigation and Plan of care explained to the patient. He verbalized understanding. Case discussed with Dr. Lui. Visit type - Emergency Visit Emergency Visit: Yes ED Registration Date: 06/24/17 Care time: The patient presented to the Emergency Department on the above date and was hospitalized for further evaluation of their emergent condition. - New Patient This patient is new to me today: Yes Date on this admission: 06/25/17 - Critical Care Critical Care patient: No - Discharge Referral Referred to [facility] Med P.C.: No
--- NOTE | 2017-06-25 13:19 | PN ---
Teaching Attending Note Name of Resident: Gaby Alcantara ATTENDING PHYSICIAN STATEMENT I saw and evaluated the patient. I reviewed the resident's note and discussed the case with the resident. I agree with the resident's findings and plan as documented. SUBJECTIVE:states breathing has improved. denies CP, SOB< fever, chills, cough, orthopnea OBJECTIVE: Last Vital Signs Temp Pulse Resp BP Pulse Ox 99.3 F 87 20 113/55 97 06/25/17 09:25 06/25/17 09:25 06/25/17 09:25 06/25/17 09:25 06/25/17 09:00 Intake & Output 06/22/17 06/23/17 06/24/17 06/25/17 23:59 23:59 23:59 23:59 Intake Total 800 Output Total 800 1845 1125 Balance -800 -0662 -1127 Weight 230 lb 222 lb 8 oz 211 lb 4 oz General NAD CV S1 S2 RRR no murmur/rub/gallop Lungs CTA B/L no wheezing/rales/rhonchi Extremities no pedal edema ASSESSMENT AND PLAN: 61yo M with PMH HTN and CHF presented to the ER with dyspnea x1day 1. Acute CHF- unknown systolic or diastolic as no previous echos however suspect systolic given home medications. decrease in 10 lbs. improved. will cont lasix 40mg BID IV, can likely convert to po in the AM. echo ordered. cardio on board 2. Acute hypoxic respiratory failure- due to volume overload. improved 3. Ascending Aortic aneurysm- 4.7cm. asymptomatic. no known hx. will need repeat imaging 4. CKD- stable 5. HTN- controlled. 6. DVT ppx- hep sq 7. d/c home in AM pending clinical status and echo
--- NOTE | 2017-06-25 16:33 | PN ---
Progress Note, Physician Chief Complaint: Feels better Low grade temp History of Present Illness: Patient was seen and examined. Awake and alert. Chart was reviewed Denies chest pain, SOB or palpitations Tolerating therapy - Current Medication List Current Medications: Active Medications Acetaminophen (Tylenol -) 650 mg PO Q6H PRN PRN Reason: PAIN LEVEL 4 - 6 Aspirin (Asa -) 81 mg PO DAILY [facility] Last Admin: 06/25/17 09:29 Dose: 81 mg Carvedilol (Coreg -) 12.5 mg PO BID [facility] Last Admin: 06/25/17 09:29 Dose: 12.5 mg Enalapril Maleate (Vasotec -) 5 mg PO DAILY [facility] Last Admin: 06/25/17 09:29 Dose: 5 mg Furosemide (Lasix Injection -) 40 mg IVPUSH BID@0600,1400 [facility] Last Admin: 06/25/17 14:07 Dose: 40 mg Heparin Sodium (Porcine) (Heparin -) 5,000 unit SQ TID [facility] Last Admin: 06/25/17 14:07 Dose: 5,000 unit Spironolactone (Aldactone -) 25 mg PO DAILY [facility] Last Admin: 06/25/17 09:29 Dose: 25 mg - Objective Vital Signs: Vital Signs Temperature 99.1 F 06/25/17 13:45 Pulse Rate 78 06/25/17 13:45 Respiratory Rate 19 06/25/17 13:45 Blood Pressure 103/45 06/25/17 13:45 O2 Sat by Pulse Oximetry (%) 97 06/25/17 09:00 Constitutional: Yes: Well Nourished Eyes: Yes: PERRL HENT: Yes: Atraumatic Neck: Yes: Supple Cardiovascular: Yes: Regular Rate and Rhythm, Murmur (2/6 NANCY), S1, S2. No: Gallop Respiratory: Yes: CTA Bilaterally Gastrointestinal: Yes: Normal Bowel Sounds, Soft. No: Tenderness Edema: No Additional Findings/Remarks: - Review of Systems Constitutional: denies: Fever. denies: Chills Cardiovascular: denies: Chest Pain, Palpitations, Shortness of Breath Respiratory: denies: Cough, Hemoptysis, Orthopnea, PND, SOB, SOB on Exertion Gastrointestinal: denies: Abdominal Pain, Nausea. denies: Constipation, Diarrhea, Melena, Rectal Bleeding, Vomiting Genitourinary: denies: Dysuria Neurological: denies: Dizziness, Headache, Syncope, Tremors Musculoskeletal: denies: joint pains Labs: CBC, BMP 06/24/17 06:00 06/25/17 06:20 INR, PTT INR 1.16 (0.82-1.09) H 06/24/17 06:00 Problem List - Problems (1) Acute on chronic congestive heart failure Code(s): I50.9 - HEART FAILURE, UNSPECIFIED Qualifiers: Congestive heart failure type: combined Qualified Code(s): I50.43 - Acute on chronic combined systolic (congestive) and diastolic (congestive) heart failure (2) HTN (hypertension) Code(s): I10 - ESSENTIAL (PRIMARY) HYPERTENSION Qualifiers: Hypertension type: essential hypertension Qualified Code(s): I10 - Essential (primary) hypertension Assessment/Plan 1. Acute on chronic LV systolic +/- diastolic dysfunction with class II NYHA heart failure and noncompliance with medications 2. Hypertension 3. Heart murmur, probable aortic valve disease PLAN: 1. Continue diuretics and monitor I/Os and daily weight 2. Continue Carvedilol and Enalapril as tolerated 3. Continue Spironolactone 4. ASA 5. Transthoracic echocardiography (official study) to assess LV/RV and valvular function. Compare study with prior study with Dr. Villalobos. Further plans are to follow. Patient has expressed that he wants to follow up with [facility] practice as outpatient. Amilcar Bright MD
[2017-06-26] MEDS: FUROSEMIDE 40 MG/4 ML INJECTABLE VIAL IVPUSH SCH (06:09)
[2017-06-26] MEDS: HEPARIN NA (PORCINE) 5,000 UNITS/ML 1ML VIAL SQ SCH ×2 (06:10→13:42)
[2017-06-26 07:31] LABS: ANION GAP 9 (8-16); BLOOD UREA NITROGEN 18 mg/dL (7-18); CALCIUM 9.3 mg/dL (8.5-10.1); CHLORIDE 99 mmol/L (98-107); CO2 33 mmol/L (21-32); CREATININE 1.2 mg/dL (0.7-1.3); GLUCOSE,RANDOM 112 mg/dL (74-106); POTASSIUM 3.6 mmol/L (3.5-5.1); SODIUM 141 mmol/L (136-145)
--- NOTE | 2017-06-26 10:16 | PN ---
Progress Note, Physician History of Present Illness: Dyspnea resolved with diuresis. Denies chest pain. - Current Medication List Current Medications: Active Medications Acetaminophen (Tylenol -) 650 mg PO Q6H PRN PRN Reason: PAIN LEVEL 4 - 6 Aspirin (Asa -) 81 mg PO DAILY [facility] Last Admin: 06/25/17 09:29 Dose: 81 mg Carvedilol (Coreg -) 12.5 mg PO BID [facility] Last Admin: 06/25/17 21:30 Dose: 12.5 mg Enalapril Maleate (Vasotec -) 5 mg PO DAILY [facility] Last Admin: 06/25/17 09:29 Dose: 5 mg Furosemide (Lasix Injection -) 40 mg IVPUSH BID@0600,1400 [facility] Last Admin: 06/26/17 06:09 Dose: 40 mg Heparin Sodium (Porcine) (Heparin -) 5,000 unit SQ TID [facility] Last Admin: 06/26/17 06:10 Dose: 5,000 unit Spironolactone (Aldactone -) 25 mg PO DAILY [facility] Last Admin: 06/25/17 09:29 Dose: 25 mg - Objective Vital Signs: Vital Signs Temperature 98.1 F 06/26/17 06:00 Pulse Rate 76 06/26/17 06:00 Respiratory Rate 18 06/26/17 06:00 Blood Pressure 102/49 06/26/17 06:00 O2 Sat by Pulse Oximetry (%) 97 06/25/17 21:00 Constitutional: Yes: No Distress, Calm, Thin Neck: Yes: Supple Cardiovascular: Yes: Regular Rate and Rhythm Respiratory: Yes: Regular, Diminished, On Nasal O2 Gastrointestinal: Yes: Normal Bowel Sounds, Soft Edema: No Labs: CBC, BMP 06/24/17 06:00 06/26/17 06:51 INR, PTT INR 1.16 (0.82-1.09) H 06/24/17 06:00 - ....Imaging Chest X-ray: Report Reviewed (Improving CHF) EKG: Report Reviewed (ECG: NSR @ 90 LVH Tele: SR occ PVC) Problem List - Problems (1) Hypertensive cardiomegaly with heart failure Code(s): I11.0 - HYPERTENSIVE HEART DISEASE WITH HEART FAILURE (2) Noncompliance with medication regimen Code(s): Z91.14 - PATIENT'S OTHER NONCOMPLIANCE WITH MEDICATION REGIMEN (3) Thoracic ascending aortic aneurysm Code(s): I71.2 - THORACIC AORTIC ANEURYSM, WITHOUT RUPTURE (4) Acute on chronic congestive heart failure Code(s): I50.9 - HEART FAILURE, UNSPECIFIED Qualifiers: Congestive heart failure type: combined Qualified Code(s): I50.43 - Acute on chronic combined systolic (congestive) and diastolic (congestive) heart failure Assessment/Plan 1. Acute on chronic LV systolic +/- diastolic failure in context of medication noncompliance resolving 2. Hypertensive cardiomyopathy 3. Heart murmur, probable aortic valve disease 4. 4.7 cm ascending TAA PLAN: 1. Decrease Lasix 20 po qd and continue Aldactone 25 qd with monitor diuretic response, renal fxn and electrolytes 2. Continue Carvedilol 12.5 bid and increase Enalapril 5 bid with uptitration as tolerated 3. Continue ASA 81 qd 4. F/u thoracic echocardiography (official study) to assess LV/RV and valvular function. Compare study with prior study with Dr. Villalobos. 5. Further plans are to follow. Patient has expressed that he wants to follow up with [facility] practice as outpatient [phone]. [address] in a year for surveillance of TAA
[2017-06-26] MEDS ORDERED: PT OWN MED DRAWER 7, Y5N ONE (10:30)
[2017-06-26] MEDS: CARVEDILOL 3.125 MG TABLET (FP) PO SCH (10:31)
[2017-06-26] MEDS: ASPIRIN 81 MG CHEWABLE TABLETS PO SCH (10:31)
[2017-06-26] MEDS: SPIRONOLACTONE 25 MG TABLET (FP) PO SCH (10:32)
[2017-06-26] MEDS: ENALAPRIL MALEATE 5 MG TABLET (FP) PO SCH (10:32)
[2017-06-26 10:33] VITALS: BP 136/57; TEMP 99.3
[2017-06-26 13:20] VITALS: PULSE 97
--- NOTE | 2017-06-26 13:34 | PN ---
Teaching Attending Note Name of Resident: Jacqueline Banegas ATTENDING PHYSICIAN STATEMENT I saw and evaluated the patient. I reviewed the resident's note and discussed the case with the resident. I agree with the resident's findings and plan as documented. SUBJECTIVE:asymptomatic. states he has no dyspnea on exertion. denies CP, SOB, fever, chills, N/V/C/D OBJECTIVE: Last Vital Signs Temp Pulse Resp BP Pulse Ox 99.3 F 97 H 18 136/57 97 06/26/17 10:00 06/26/17 13:18 06/26/17 10:00 06/26/17 10:00 06/26/17 13:18 Intake & Output 06/23/17 06/24/17 06/25/17 06/26/17 23:59 23:59 23:59 23:59 Intake Total 800 250 870 Output Total 800 3152 7851 3989 Balance -236 -4468 -8245 -475 Weight 230 lb 222 lb 8 oz 210 lb 6 oz 209 lb 12.8 oz General NAD CV S1 S2 RRR no murmur/rub/gallop Lungs CTA B/L no wheezing/rales/rhonchi Extremities no pedal edema ASSESSMENT AND PLAN: 61yo M with PMH HTN and CHF presented to the ER with dyspnea x1day 1. Acute CHF- clinically improved. 12 pound weight loss. can likely transition lasix iv to po. check pre and post. echo done this AM. will wait for results. encouraged to get home scale and weigh himself daily. to notify PMD if his weight increases by more than 2 pounds. resume home medications that he was not taking. cardio on board 2. Acute hypoxic respiratory failure- due to volume overload. improved. check pre and post. 3. Ascending Aortic aneurysm- 4.7cm. asymptomatic. no known hx. will need repeat imaging 4. CKD- stable 5. HTN- controlled. 6. DVT ppx- hep sq 7. d/c home pending echo results.
--- NOTE | 2017-06-26 20:35 | PN ---
Physical Exam: SUBJECTIVE: Patient seen and examined in AM. Feels well. Wishes to go home. Denies SOB, chest pain, chest discomfort. No fever or chills. OBJECTIVE: Vital Signs Period Temp Pulse Resp BP Sys/Boo Pulse Ox Last 24 Hr 97.9 F-99.3 F 76-97 -18 102-136/49-58 97-97 Intake & Output 06/23/17 06/24/17 06/25/17 06/26/17 23:59 23:59 23:59 23:59 Intake Total 613 271 4944 Output Total 800 3155 2575 1500 Balance -573 -0295 -2325 -90 Weight 104.326 kg 100.924 kg 95.424 kg 95.164 kg GENERAL: nad, aaox3 ENT: moist mucous membranes LUNGS: CTAB HEART: rrr, normal s1/s2, 3/6 NANCY ABDOMEN: Soft, ntnd EXTREMITIES: 2+ DP pulses, wwp, no edema 06/26/17 06:51 ASSESSMENT/PLAN: 61yo man with PMH of HTN and CHF who p/w acute dyspnea 1xday. #acute on chronic LV systolic failure in the setting of med non-compliance, lost ~2lbs since yesterday -ECHO today, LV systolic function unchanged from prior (LV dilated, EF 30-35%, severe LV global hypokinesis, mod AR, mild , mod MR, mild SD, mild Aortic root dilatation) -Cardiology consulted, patient referred to follow-up with [facility], which he is in agreement -Per Cards, will d/c pt on: lasix 20mg PO qd, aldactone 25mg qd, carvedilol 12.5mg bid, enalapril 5mg bid, ASA 81mg qd #4.7cm ascending TAA -Patient made aware. Will f/u as OP #HTN - controlled - c/w meds as above -d/w importance of low Na diet #FEN: PO hydration / lytes wnl / Na controlled diet #DVT PPX: HSQ TID #DISPO: d/w home today d/w Dr. Sania Banegas MD PGY1 - Internal Medicine Visit type - Emergency Visit Emergency Visit: No - New Patient This patient is new to me today: Yes Date on this admission: 06/26/17 - Critical Care Critical Care patient: No
--- NOTE | 2017-06-26 21:49 | DS ---
Physical Exam: SUBJECTIVE: Patient seen and examined in AM. Feels well. Wishes to go home. Denies SOB, chest pain, chest discomfort. No fever or chills OBJECTIVE: Vital Signs Intake & Output 06/23/17 06/24/17 06/25/17 06/26/17 23:59 23:59 23:59 23:59 Intake Total 954 545 1678 Output Total 800 3155 2575 1500 Balance -800 -4809 -2325 -90 Weight 104.326 kg 100.924 kg 95.424 kg 95.164 kg Period Temp Pulse Resp BP Sys/Boo Pulse Ox Last 24 Hr 97.9 F-99.3 F 76-97 102-136/49-58 97-97 PHYSICAL EXAM GENERAL: nad, aaox3 ENT: moist mucous membranes LUNGS: CTAB HEART: rrr, normal s1/s2, 3/6 NANYC ABDOMEN: Soft, ntnd EXTREMITIES: 2+ DP pulses, wwp, no edema LABS Laboratory Results - last 24 hr CBC, BMP 06/24/17 06:00 06/26/17 06:51 06/26/17 06:51 Sodium 141 Potassium 3.6 Chloride 99 Carbon Dioxide 33 H Anion Gap 9 BUN 18 Creatinine 1.2 Random Glucose 112 H Calcium 9.3 Microbiology 06/23/17 22:55 Nasopharyngeal Swab Influenza Types A,B Antigen (YOLIS) - Final 06/23/17 22:55 Nasopharyngeal Swab - Final EKG 06/23 - suggestive of LVH/strain; Diffuse TW changes CXR 06/23: BL vascular condition, pleural effusions. Cardiomegaly Chest CT-PE 06/24 - Negative for PE; LVH; Large BL pleural effusions; Ascending Aortic aneurysm 4.9 cm Bedside TTE done by resident: dilated hypokinetic LV with septal hypertrophy, large RV ECHO 06/26 - LV function severely dilated, function significantly reduced, global hypokinesis (EF 30-35%); LAE; Moderate AR, MR Consults: Cardiology - Seen by Dr. Bright HOSPITAL COURSE: 61 yo w/ pmh of CHF, heart murmur, who was BIBEMS from work after becoming acutely SOB. Date of Admission:06/24/17 Date of Discharge: 06/26/17 Pt medically stable and cleared for discharge home with outpatient f/u with PCP and Cardiology (Dr. Bright) in one week. Discharge Summary Reason For Visit: ACUTE CONGESTIVE HEART FAILURE Condition: Improved - Instructions Diet, Activity, Other Instructions: You were admitted to the hospital for worsening of your heart failure. You were also found to have a 4.7cm aneurysm (dilation) of your ascending thoracic aorta that needs to be monitored regularly. Recommendations: -You may resume your regular daily activities. You should maintain a low salt diet. Try to follow the DASH diet. -You should weigh yourself daily and keep a record of it. If you gain more than 2lbs in one day, you need to notify your Spark Tester or primary care physician. Medications: It is important that you take your medications regularly as listed below: -Aspirin 81mg daily -Lasix 20mg daily -Aldactone 25mg daily -Carvedilol 12.5mg two times per day (12 hours apart) -Enalapril 5mg two times per day (12hours apart) Follow-ups: -Make an appointment with [facility] within 1 week to discuss your heart medications. -Make an appointment with Dr. Collado, your primary care physician, within 1-2 weeks for post-hospitalization evaluation. Let your doctor know about the aneurysm. You should have repeat imaging (Chest CT) in 6 months to monitor its size. If it gets larger, you may need surgery. Please return to the Emergency Department if you have worsening shortness of breath, chest pain, or have any new or concerning symptoms. Referrals: Morteza Collado MD [Primary Care Provider] - Amilcar Bright MD [Staff Physician] - 1 Week Disposition: HOME - Home Medications Comprehensive Discharge Medication List: Ambulatory Orders Aspirin [ASA -] 81 mg PO DAILY #30 tab.chew 06/26/17 Carvedilol [Coreg] 12.5 mg PO BID #60 tablet 06/26/17 Enalapril Maleate [Vasotec -] 5 mg PO BID #60 tablet 06/26/17 Furosemide [Lasix -] 20 mg PO DAILY #30 tablet 06/26/17 Miscellaneous Medical Supply [Outpatient Order] 1 each ASDIR #1 misc Spironolactone [Aldactone -] 25 mg PO DAILY #30 tablet 06/26/17 - Discharge Referral Referred to [facility] No
[2017-06-26] MEDS ORDERED: ENALAPRIL MALEATE 5 MG TABLET (FP) PO SCH (22:00)
[2017-06-27] MEDS ORDERED: FUROSEMIDE 20 MG TABLET (FP) PO SCH (10:00)
== END 2017-06-26 17:04 | disposition home or self-care (01) | DRG 291 ==
LOC: JER 21:52 → JERBED 06-24 01:38 → J4S 06-24 04:01
PROVIDERS: ADMIT Internal Medicine; ATTEND Internal Medicine
DX: I13.0 Hypertensive heart and chronic kidney disease with heart failure and stage 1 through stage 4 chronic kidney disease, or unspecified chronic kidney disease (principal); J96.01 Acute respiratory failure with hypoxia; I50.43 Acute on chronic combined systolic (congestive) and diastolic (congestive) heart failure; N18.9 Chronic kidney disease, unspecified; E87.70 Fluid overload, unspecified; Z91.14 Patient's other noncompliance with medication regimen; I71.2 Thoracic aortic aneurysm, without rupture; R01.1 Cardiac murmur, unspecified
CPT/HCPCS: 36415; 71045-TC; 71260-TC; 80048; 80053; 80061; 82550; 82553; 83036; 83721; 83735; 83880; 84100; 84484; 85025; 85027; 85379; 85610; 87804; 93005; 93010; 93306-TC; 94761; 99284-25; 99285-25; J1644

== ENCOUNTER 2019-08-06 09:00 | Emergency (ER) | payer OTHER ==
[2019-08-06 09:18] VITALS: BMI 32.3
[2019-08-06 10:36] LABS: BASO % 0.7 % (0-2.0); EOS % 9.2 % (0-4.5); HEMATOCRIT 40.5 % (35.4-49); HEMOGLOBIN 13.4 GM/dL (11.7-16.9); LYMPH % 23.7 % (8-40); MCH 31.3 pg (25.7-33.7); MCHC 33.2 g/dl (32.0-35.9); MEAN CELL VOLUME 94.2 fl (80-96); MEAN PLT VOLUME 9.9 fl (7.5-11.1); MONO % 12.8 % (3.8-10.2); NEUT % 53.6 % (42.8-82.8); PLATELET COUNT 208 K/MM3 (134-434); RDW 13.1 % (11.9-15.9); WHITE BLOOD COUNT 5.1 K/mm3 (4.0-10.0)
--- NOTE | 2019-08-06 10:58 | PDOC ---
History of Present Illness - General Chief Complaint: Shortness of Breath Stated Complaint: COUGH/DIFF BREATHING Time Seen by Provider: 08/06/19 09:21 - History of Present Illness Initial Comments: Garry Welch is a 63yo man with a PMH of CHF who presents with two transient episodes of SOB last week. 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 He has not had any episodes similar to this in the past. He states that he felt that he was "overheated" when the episode occurred, and his symptoms resolved when he rested for several minutes. He denies any chest pain, lightheadedness, sweating nausea, palpitations, or any other associated symptoms. He additionally denies any GALAVIZ, orthopnea, leg swelling, or weight change, which were the symptoms he had when originally diagnosed with heart failure. He has been compliant with his home medications. He does endorse a recent URI with nasal congestion, post-nasal drip, and occasional cough but denies fevers, worsening cough, or other infectious symptoms. Past History - Past Medical History Allergies/Adverse Reactions: Allergies Allergy/AdvReac Type Severity Reaction Status Date / Time No Known Allergies Allergy Verified 06/23/17 22:09 Home Medications: Ambulatory Orders Carvedilol [Coreg] 12.5 mg PO BID #60 tablet 06/26/17 Furosemide [Lasix -] 20 mg PO DAILY #30 tablet 06/26/17 Albuterol Sulfate Inhaler - [Ventolin HFA Inhaler -] 1 - 2 inh PO Q4H PRN #1 inhaler 08/06/19 Enalapril Maleate [Vasotec -] 5 mg PO DAILY 08/06/19 Inhaler, Assist Devices [Space Chamber Plus] 1 each UTDICT #1 spacer 08/06/19 Prednisone [Prednisone 50 MG TABLETS] 50 mg PO DAILY #4 tablet 08/06/19 Spironolactone [Aldactone -] 25 mg PO BID 08/06/19 COPD: No CHF: Yes HTN: Yes - Surgical History Cholecystectomy: Yes - Immunization History Immunization Up to Date: Yes - Psycho Social/Smoking Cessation Hx Smoking Status: No Smoking History: Current every day smoker Have you smoked in the past 12 months: No Number of Cigarettes Smoked Daily: 0 If you are a former smoker, when did you quit?: 2006 Information on smoking cessation initiated: No Hx Alcohol Use: No Drug/Substance Use Hx: No Substance Use Type: None Hx Substance Use Treatment: No Review of Systems - Review of Systems Comments:: General: No fevers, no chills, no weight or appetite change, no malaise HEENT: No changes in vision, no changes in hearing, no congestion, no sore throat CV: No chest pain, no palpitations, no LE edema, no orthopnea Pulm: + SOB, no cough, no wheezing GI: No nausea or vomiting, no change in bowel habits, no melena : No frequency, no urgency, no dysuria Musc: No back pain, no joint swelling, no recent injury Skin: No rash, no lesions, no erythema Endo: No excessive thirst, no heat/cold intolerance Heme: No unusual bruising or bleeding, no swollen glands Neuro: No syncope, no numbness/tingling, no focal weakness Vasc: No claudication Psych: No recent change in mood, no SI or HI *Physical Exam - Vital Signs Last Vital Signs Temp Pulse Resp BP Pulse Ox 98.5 F 72 16 118/44 L 94 L 08/06/19 09:16 08/06/19 09:16 08/06/19 09:16 08/06/19 09:16 08/06/19 09:16 - Physical Exam General: Comfortable, no acute distress HEENT: PERRL, EOMI, MMM, voice normal, normal neck ROM Cards: RRR, no murmur appreciated Pulm: Comfortable on room air, clear to auscultation bilaterally Abd: Soft, nontender, nondistended Ext: Atraumatic. No LE edema. ROM intact. Strength 5/5 and equal bilaterally Vasc: Extremities WWP. Skin: Normal color, no rashes or lesions Neuro: A&Ox3, CN grossly intact, normal speech, motor/sensory grossly intact and symmetric Psych: Mood appropriate to situation ED Treatment Course - LABORATORY CBC & Chemistry Diagram: 08/06/19 10:10 08/06/19 10:10 - RADIOLOGY Radiology Studies Ordered: Category Date Time Status CHEST PA & LAT [RAD] Stat Radiology 08/06/19 09:56 Ordered Medical Decision Making - Medical Decision Making 08/06/19 10:04 Garry Welch is a 63yo man with a PMH of CHF who presents with two transient episodes of SOB last week that occurred while doing physical labor outside in the heat. He is currently asymptomatic. He denies any associated symptoms though does endorse a recent URI and occasional cough. - Most likely transient SOB due to physical labor as pt denies any signs/symptoms of CHF exacerbation. However, given history of symptoms occurring with exertion and "flushing" sensation, will evaluate for ACS. Less likely pulmonary infection such as flu given no fever, resolution of SOB, though pt galaviz s report cough. Slight wheezing in left lung base, will eval w/ xray - CBC, CMP, trop, CXR, EKG - Given that symptoms occurred several days ago, will only check 1x troponin 08/06/19 11:24 - Labs without concerning abnnormalities. Trop negative - EKG without significant change from prior. HR 68, long ME at 206, diffuse t- wave inversions seen previously - CXR without focal pathology - Bedside US completed by Stephen Quesada and Armando with very poor contractility, occasional b-lines in b/l lungs 08/06/19 11:50 - Pt endorsed to Dr Sanches that he has been using his son's albuterol inhaler with some improvement. Will give inhaler, short course of prednisone for home. Pt advised to follow up with his PMD within the next few days. He states understanding and agreement with this plan. Discussed with Dr Myron Cintron PGY2 Discharge - Discharge Information Problems reviewed: Yes Clinical Impression/Diagnosis: Shortness of breath Condition: Stable Disposition: HOME - Admission No - Additional Discharge Information Prescriptions: Prednisone [Prednisone 50 MG TABLETS] 50 mg PO DAILY #4 tablet Inhaler, Assist Devices [Space Chamber Plus] 1 each UTDICT #1 spacer Albuterol Sulfate Inhaler - [Ventolin HFA Inhaler -] 1 - 2 inh PO Q4H PRN #1 inhaler PRN Reason: Short Of Breath/Wheezing - Follow up/Referral Referrals: Morteza Collado MD [Primary Care Provider] - - Patient Discharge Instructions Patient Printed Discharge Instructions: DI for Reactive Airway Disease-Adult Additional Instructions: Discharge Instructions: You were seen in the emergency department for shortness of breath. Your blood tests did not show any concerning findings with your heart or lungs. Your s ymptoms are most likely due to a viral infection and reactive airway (asthma- like symptoms). Home Care and Follow Up: - You have been prescribed a steroid medication called prednisone. This should b e taken once daily for 4 days and will help reduce inflammation in your lungs. - You have been given an albuterol inhaler to use every 4 hours if needed for shortness of breath or wheezing. Use the spacer tube that has been prescribed as well following the directions given in the ED. - Make sure you are drinking plenty of fluids while you are sick. Increase your normal fluid intake. It is OK if you do not feel like eating as long as you are staying well hydrated - You may use medications such as acetaminophen (Tylenol) 650-1000mg or ibuprofen (Advil, Motrin) 400-600mg every 6 hours as needed for pain or fever over 101F - Consider placing a humidifier in your room overnight to help relieve c ongestion and reduce drying of your nose and mouth. - Use throat lozenges (cough drops) for sore throat or cough - If you use additional cold medications, make sure they do not contain medicines you are already taking such as acetaminophen or ibuprofen - Please follow up with your regular doctor within the next week to make sure your lungs are improving. - Seek immediate care if you have worsening symptoms, you are unable to stay hydrated, you develop high fevers over 104F that do not come down with medication, or you have any other medical emergency. - Post Discharge Activity Work/Back to School Note: Back to Work
[2019-08-06 11:18] LABS: ALBUMIN 3.8 g/dl (3.4-5.0); ALK PHOS 69 U/L (45-117); ANION GAP 7 MMOL/L (8-16); BILIRUBIN,TOTAL 1.8 mg/dL (0.2-1); BLOOD UREA NITROGEN 15.6 mg/dL (7-18); CHLORIDE 103 mmol/L (98-107); CO2 30 mmol/L (21-32); CREATININE 1.1 mg/dL (0.55-1.3); GLUCOSE,RANDOM 100 mg/dL (74-106); POTASSIUM 3.7 mmol/L (3.5-5.1); SGOT/AST 12 U/L (15-37); SGPT/ALT 21 U/L (13-61); SODIUM 140 mmol/L (136-145); TOT PROT 7.1 g/dl (6.4-8.2)
[2019-08-06 11:59] VITALS: BP 124/50; PULSE 66; TEMP 98.4
--- NOTE | 2019-08-06 13:00 | PDOC ---
Documentation entered by Robinson Pike SCRIBE, acting as scribe for Rafael Sanches MD. Rafael Sanches MD: This documentation has been prepared by the Glendy hendrickson Nirvannie, SCRIBE, under my direction and personally reviewed by me in its entirety. I confirm that the documentation accurately reflects all work, treatment, procedures, and medical decision making performed by me. Attending Attestation - Resident Resident Name: AbdulazizTrinity - ED Attending Attestation I have performed the following: I have examined & evaluated the patient, The case was reviewed & discussed with the resident, I agree w/resident's findings & plan, Exceptions are as noted - HPI HPI: 08/06/19 11:27 The patient is a 63 year old male, with a significant past medical history of HTN and CHF who presents to the ED s/p 2 transient episodes of shortness of breath approximately a week ago. 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 He denies any orthopnea, palpitations, or LOC. - Physicial Exam PE: 08/06/19 13:09 Vitals: Triage Vital signs reviewed General Appearance: No acute distress, well nourished well developed, Head: Atraumatic, Cardiac: Regular rate and rhythym, no murmurs, no rubs, no gallops, Lungs: Slight wheeze to left lower lung, Abdomen: Soft, non distended, normal bowel sounds, non tender to palpation Extremities: Full range of motion to all extremities, no cyanosis, clubbing, or edema Skin: Warm and dry, no rashes or lesions, no rash, no petechiae Psych: Normal mood, normal affect - Medical Decision Making 08/06/19 11:27 63 year old male, with a significant past medical history of HTN and CHF who presents to the ED s/p 2 transient episodes of shortness of breath approximately a week ago. 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 Heart Score/ECG Review - History History: Slightly suspicious - Electrocardiogram EKG: Non specific repolarization disturbance - Age Age: 45-65 - Risk Factors Risk Factors Heart Score: Yes Hx Hypertension Based on the list above the patient has:: 1-2 risk factors - Troponin Troponin: </= normal limit - Score Heart Score - Total: 3 - ECG Impressions Comment:: 08/06/19 12:11 EKG performed at [facility] EKG 1054 demonstrates normal sinus rhythm T wave inversions inferior laterally unchanged from previous Interpreted by me.
--- NOTE | 2019-08-07 11:14 | EKG ---
Test Reason : Blood Pressure : / mmHG Vent. Rate : 068 BPM Atrial Rate : 068 BPM P-R Int : 206 ms QRS Dur : 110 ms QT Int : 452 ms P-R-T Axes : 048 027 261 degrees QTc Int : 480 ms NORMAL SINUS RHYTHM POSSIBLE LEFT ATRIAL ENLARGEMENT LEFT VENTRICULAR HYPERTROPHY T WAVE ABNORMALITY, CONSIDER INFEROLATERAL ISCHEMIA PROLONGED QT ABNORMAL ECG WHEN COMPARED WITH ECG OF 23-JUN-2017 22:47, T WAVE INVERSION MORE EVIDENT IN INFERIOR LEADS NONSPECIFIC T WAVE ABNORMALITY HAS REPLACED INVERTED T WAVES IN ANTERIOR LEADS Confirmed by MD LISET, DOMINGA ([id number]) on 08/07/2019 11:14:36 AM Referred By: Confirmed By:DOMINGA HUTCHINS MD
== END 2019-08-06 12:00 | disposition home or self-care (01) ==
LOC: JER 09:00 → SUPCPDRO 09:00 → JER 12:00
PROC: BB4BZZZ Ultrasonography of Pleura (ICD-10-PCS; principal; 2019-08-06)
DX: R06.02 Shortness of breath (principal); I11.0 Hypertensive heart disease with heart failure; I50.9 Heart failure, unspecified
CPT/HCPCS: 36415; 71046-TC-FY; 80053; 82550; 84484; 85025; 93005; 93010; 99285-25

== ENCOUNTER 2020-02-01 21:21 | Inpatient (IN) | payer OTHER ==
[2020-02-01] MEDS ORDERED: ALBUTEROL SO4 2.5/IPRATROPIUM 0.5 INH SOL 3 ML VIAL.NEB. NEB ONE ×2 (21:28→21:52)
[2020-02-01] MEDS ORDERED: RACEPINEPHRINE IH SOL 2.25% 11.25 MG/0.5 ML VIAL IH ONE (21:29)
[2020-02-01] MEDS ORDERED: DEXAMETHASONE LIQUID 0.5 MG/5 ML PO ONE (21:29)
[2020-02-01] MEDS ORDERED: RACEPINEPHRINE IH SOL 2.25% 11.25 MG/0.5 ML VIAL NEB ONE (21:31)
[2020-02-01] MEDS ORDERED: SODIUM CHLORIDE 500 ML IV STA (21:33)
--- NOTE | 2020-02-01 21:40 | PDOC ---
Attending Attestation - Resident Resident Name: Brant Parr - ED Attending Attestation I have performed the following: I have examined & evaluated the patient, The case was reviewed & discussed with the resident, I agree w/resident's findings & plan - HPI HPI: 02/02/20 00:23 Pt comes with difficulty breathing and COPD exacerbation - Physicial Exam PE: 02/01/20 21:39 General: awake, alert, fully oriented, in no acute distress, well developed, well nourished Head: normocephalic, atraumatic Eyes: PERRL, EOMI, anicteric sclera, conjunctiva clear ENT: Auricles normal inspection, hearing grossly normal, oropharynx clear without exudates, no nasal congestion, dry mucous membranes Neck: supple, normal ROM, no LAD, JVD or masses Lung: DECREASED BS bila; + wheezes; severe distress, speaks partial sentences Heart: RRR, normal S1, S2, no murmurs appreciated Abdomen: soft, non tender, normoactive bowel sounds, no guarding, rebound, masses Extremities: normal ROM, no edema, no erythema or tenderness, DP/PT pulses 2+ and symmetric Neuro: Cranial nerves: Cranial nerves II through XII are intact Motor: The upper extremities are 5/5 in all muscle groups. The lower extremities are 5/5 in all muscle groups. No pronator drift. Sensation: Sensation is intact to light touch throughout. Gait: Normal Skin: warm, dry, no rashes or lesions noted, normal skin turgor - Medical Decision Making 02/01/20 22:02 Pt is yelling at us and not allowing us to touch him. He is telling us that he will He is using duoneb and racemic epi neb and he is feeling better and yelling at u s in full sentences. 02/01/20 23:34 Pt has a high eosinophil count; he has congestion and likely allergies. Pt may benefit from singulair 02/02/20 00:23 Pt is apologizing now for "being belligerent" 02/02/20 03:00 Pt will be admitted for SOB and COPD exacerbation. Discharge - Discharge Information Problems reviewed: Yes Clinical Impression/Diagnosis: Hypoxia, SOB (shortness of breath), Acute respiratory failure with hypoxia, Respiratory failure COPD (chronic obstructive pulmonary disease) Qualifiers: COPD type: unspecified COPD Qualified Code(s): J44.9 - Chronic obstructive pulmonary disease, unspecified Condition: Improved - Follow up/Referral - Patient Discharge Instructions - Post Discharge Activity
--- NOTE | 2020-02-01 21:49 | PDOC ---
History of Present Illness - General Chief Complaint: Shortness of Breath Stated Complaint: SHORTNESS OF BREATH Time Seen by Provider: 02/01/20 21:28 History Source: Patient Exam Limitations: No Limitations - History of Present Illness Initial Comments: Son's Phone number Leobardo: [phone] Per son - went to the store to go get food around 8 pm, then said he got back to the garage and couldn't breathe, so came straight to the hospital. He drove himself here. He needed help getting out of the car to the hospital bc he was so short of breath. Garry is a 64 yo M w a hx of HTN, HF w/ an EF of 30 - 35% in 05/2017, COPD, and asthma who presents to the [facility] er in severe respiratory distress, humped over, clutching his chest stating he feels like he cannot breathe, cannot take a deep breath, and cannot get any oxygen in. He states he has had problems like this in the past and was tested negative for COVID last time he was in the hospital. Upon presentation to the ER he was profusely diaphoretic and gasping for oxygen. When placed on the monitor his oxygen saturation was in the 60's and he had a perfect waveform. Respiratory was called for immediate placement of a Bipap but upon placement of a 100% non-rebreather mask his oxygen saturation went up to 96%. IV access was immediately obtained and a rainbow set of tubes were sent off including a septic and a COVID order set. When we tried to originally get a chest x-ray the patient became delirious and started refusing to allow any staff member to treat him. He called me a deamon and said I could not wipe off the sweat from his forehead. He began sweating profusely but would not allow any healthcare provider to examine him. The patient is now confused, refusing x-ray and EKG. Denies recent fevers or chills. PCP: Morteza Collado PSH: cholecystectomy Social Hx: Former smoker, states he hasn't smoked for 20 years but used to be a heavy smoker Allergies: NKA, NKDA Past History - Medical History Allergies/Adverse Reactions: Allergies Allergy/AdvReac Type Severity Reaction Status Date / Time No Known Allergies Allergy Verified 02/01/20 21:28 Home Medications: Ambulatory Orders Carvedilol [Coreg] 12.5 mg PO BID #60 tablet 06/26/17 Furosemide [Lasix -] 20 mg PO DAILY #30 tablet 06/26/17 Albuterol Sulfate Inhaler - [Ventolin HFA Inhaler -] 1 - 2 inh PO Q4H PRN #1 inhaler 08/06/19 Enalapril Maleate [Vasotec -] 5 mg PO DAILY 08/06/19 Inhaler, Assist Devices [Space Chamber Plus] 1 each MC UTDICT #1 spacer 08/06/19 Spironolactone [Aldactone -] 25 mg PO BID 08/06/19 Amox-Tr/K Cl [Augmentin 875-125mg Tablet -] 1 tab PO BID@0800,1730 #5 tablet 09/28/19 Budesonide/Formeterol Fumarate [SYMBICORT 160/4.5mcg -] 2 puff IH BID #1 inhaler 09/28/19 predniSONE [Deltasone -] See Taper PO ASDIR #6 tab 09/28/19 Asthma: No COPD: No CHF: Yes HTN: Yes - Surgical History Cholecystectomy: Yes - Immunization History Immunization Up to Date: Yes - Psycho-Social/Smoking History Smoking Status: No Smoking History: Never smoked Have you smoked in the past 12 months: No Number of Cigarettes Smoked Daily: 0 If you are a former smoker, when did you quit?: 2005 Information on smoking cessation initiated: No - Substance Abuse Hx (Audit-C & DAST Scrn) How often the patient has a drink containing alcohol: Never Score: In Men: 4 or > Positive; In Women: 3 or > Positive: 0 Screen Result (Pos requires Nsg. Audit-10AR): Negative In the last yr the pt used illegal drug/Rx for NonMed reason: No Score: Yes response is considered Positive: 0 Screen Result (Positive result requires Nsg. DAST-10): Negative Review of Systems - Review of Systems Able to Perform ROS?: Yes Comments:: CONSTITUTIONAL: Absent: fever, no chills, no fatigue EYES: Absent: visual changes ENT: Absent: ear pain, no sore throat CARDIOVASCULAR: Absent: chest pain, no palpitations RESPIRATORY: Present: SOB Absent: cough GI: Absent: abdominal pain, no nausea, no vomiting, no constipation, no diarrhea GENITOURINARY: Absent: dysuria, no frequency, no hematuria MUSKULOSKELETAL: Absent: back pain, no arthralgia, no myalgia SKIN: Absent: rash NEURO: Absent: headache *Physical Exam - Vital Signs Last Vital Signs Temp Pulse Resp BP Pulse Ox 97.2 F L 105 H 22 H 158/103 H 64 L 02/01/20 21:25 02/01/20 21:25 02/01/20 21:25 02/01/20 21:25 02/01/20 21:25 - Physical Exam GENERAL: Appears severely distressed. Well-nourished. HEENT: Normocephalic, atraumatic. PERRL, EOM intact. CARDIOVASCULAR: Tachycardic rate. Regular rhythm. PULMONARY: There are bilateral but mainly left sided rhonchi and expiratory wheezes. ABDOMEN: Soft, non-distended, non-tender. EXTREMITIES: Normal ROM in all four extremities. No gross deformities. SKIN: Diaphoretic. Warm. No rash NEUROLOGICAL: No focal neurological deficits. ED Treatment Course - LABORATORY CBC & Chemistry Diagram: 02/01/20 21:30 02/01/20 21:30 - RADIOLOGY Radiology Studies Ordered: Category Date Time Status CHEST X-RAY PORTABLE* [RAD] Stat Radiology 02/01/20 21:34 Ordered - Medications Given in the ED: ED Medications Discontinued Medications Generic Name Dose Route Start Last Admin Trade Name Freq PRN Reason Stop Dose Admin Epinephrine 1 vial 02/01/20 21:29 02/01/20 21:48 S-2 IH 02/01/20 21:30 1 vial ONCE ONE Administration Medical Decision Making - Medical Decision Making Garry is a 64 yo M w a hx of HTN, HF w/ an EF of 30 - 35% in 05/2017, COPD, and asthma who presents to the [facility] er in severe respiratory distress Vital Signs Temp Pulse Resp BP Pulse Ox 97.2 F L 105 H 22 H 158/103 H 64 L 02/01/20 21:25 02/01/20 21:25 02/01/20 21:25 02/01/20 21:25 02/01/20 21:25 DDx IBNLT: Covid, PNA, COPD exacerbation, Asthma, hypoxic respiratory failure, Sepsis MDM: Patient is now saturating well on non-rebreather. Low threshold for Bipap. He is currently delirious and not allowing us to get an EKG, a fingerstick, or do a portable chest xr. Will consider chemically sedating in order to perform medical workup. Re-assessment: After patient received breathing treatments he calmed down and started allowing us to perform an EKG, CXR, and complete a work up. Dispo: Will need admission for COPD exacerbation Discharge - Discharge Information Problems reviewed: Yes Clinical Impression/Diagnosis: Hypoxia, SOB (shortness of breath), Acute respiratory failure with hypoxia COPD (chronic obstructive pulmonary disease) Qualifiers: COPD type: unspecified COPD Qualified Code(s): J44.9 - Chronic obstructive pulmonary disease, unspecified Condition: Improved - Admission Yes - Follow up/Referral - Patient Discharge Instructions - Post Discharge Activity Vital Signs - Vital Signs Vital signs refused: No Pulse Rate: 72 Respiratory Rate: 17 Blood Pressure: 140/87 BP Location: Left Arm Blood Pressure position: Sitting
[2020-02-01] MEDS ORDERED: DEXAMETHASONE SOD PHOSPHATE 10 MG/1 ML VIAL ONE (22:18)
[2020-02-01] MEDS ORDERED: AZITHROMYCIN IVPB 500 MG in DEXTROSE 5%-WATER - 250 ML IVPB ONE (22:58)
[2020-02-01] MEDS ORDERED: CEFTRIAXONE 1 GM in DEXTROSE 5%-WATER - 50 ML IVPB ONE (22:58)
[2020-02-01 23:14] LABS: BASO % 0.7 % (0-2.0); HEMATOCRIT 45.4 % (35.4-49); HEMOGLOBIN 15.1 GM/dL (11.7-16.9); LYMPH % 44.8 % (8-40); MCH 31.6 pg (25.7-33.7); MCHC 33.2 g/dl (32.0-35.9); MEAN PLT VOLUME 10.4 fl (7.5-11.1); MONO % 12.7 % (3.8-10.2); NEUT % 32.8 % (42.8-82.8); PLATELET COUNT 248 K/MM3 (134-434); RBC 4.77 M/mm3 (4.00-5.60); RDW 12.7 % (11.9-15.9); VENOUS BASE EXCESS -1.5 mmol/L (-2-2); VENOUS O2 SATURATION 93.6 % (70-80)
[2020-02-01 23:20] LABS: VENOUS PCO2 80.9 mmHg (38-52); VENOUS PH 7.182 (7.310-7.410)
[2020-02-01] MEDS ORDERED: AZITHROMYCIN IVPB 500 MG/250 ML BAG IVPB ONE (23:20)
[2020-02-01] MEDS ORDERED: CEFTRIAXONE 1 GM/50 ML BAG ONE (23:20)
[2020-02-01] MEDS ORDERED: MONTELUKAST NA 10 MG TABLET PO ONE (23:35)
[2020-02-01 23:49] LABS: ALBUMIN 4.3 g/dl (3.4-5.0); ALK PHOS 58 U/L (45-117); ANION GAP 6 MMOL/L (8-16); BILIRUBIN,TOTAL 2.5 mg/dL (0.2-1); BLOOD UREA NITROGEN 11.5 mg/dL (7-18); CALCIUM 9.1 mg/dL (8.5-10.1); CHLORIDE 99 mmol/L (98-107); CO2 31 mmol/L (21-32); CREATININE 1.2 mg/dL (0.55-1.3); GLUCOSE,RANDOM 147 mg/dL (74-106); POTASSIUM 4.6 mmol/L (3.5-5.1); SGOT/AST 32 U/L (15-37); SGPT/ALT 23 U/L (13-61); SODIUM 136 mmol/L (136-145); TOT PROT 7.9 g/dl (6.4-8.2)
[2020-02-01 23:53] LABS: BILIRUBIN,DIRECT 0.4 mg/dL (0.0-0.2); LDH 194 U/L (87-246)
[2020-02-02] MEDS ORDERED: MONTELUKAST NA 10 MG TABLET ONE (00:04)
[2020-02-02 00:20] LABS: INR 1.1 (0.83-1.09)
[2020-02-02 00:22] LABS: ACTIVATED PTT 31.4 SECONDS (25.2-36.5)
[2020-02-02 01:22] LABS: ARTERIAL BLD GAS O2 SATURATION 96.8 mmHg (95-98); ARTERIAL BLOOD GAS BASE EXCESS 0.2 mmol/L (-2-2); ARTERIAL BLOOD GAS pH 7.347 (7.350-7.450)
[2020-02-02 01:24] LABS: ALLENS TEST POSITIVE
--- NOTE | 2020-02-02 03:48 | PN ---
Teaching Attending Note Name of Resident: Amol Cotter ATTENDING PHYSICIAN STATEMENT I saw and evaluated the patient. I reviewed the resident's note and discussed the case with the resident. I agree with the resident's findings and plan as documented. SUBJECTIVE: 64yoM with history of COPD, HTN, and chronic systolic HFrEF 30-35% who presents with acute onset shortness of breath. Patient states he was supposed to follow up with a electrician apprentice powerhouse but has not yet been able to and is not taking a controller inhaler. This evening as he was walking he became suddenly unable to catch his breath, denies chest pain, palpitations, syncope. Has had an occasionally purulent cough but no fever, chills. Patient was hypoxic in 60s on arrival to the ED, initial VBG 7.18/81. Placed on nonrebreather, multiple Duoneb treatments given with improvement in O2 sat and respiratory status. Repeat ABG without positive pressure ventilation was 7.33/50/95. CXR without evidence of consolidation or fluid overload. Also received dexamethasone and NS 500cc. ROS (+) SOB, nasal congestion, fatigue, cough (-) chest pain, palpitations, syncope OBJECTIVE: Vital Signs - 24 hr 02/01/20 02/01/20 02/02/20 21:25 23:30 01:44 Temperature 97.2 F L 98.4 F Pulse Rate 105 H 72 Pulse Rate [ 82 Left Apical] Respiratory 22 H 18 17 Rate Blood Pressure 158/103 H 140/87 Blood Pressure 113/55 L [Right Arm] O2 Sat by Pulse 64 L 100 Oximetry (%) 02/02/20 02:01 Temperature 98.9 F Pulse Rate Pulse Rate [ Left Apical] Respiratory Rate Blood Pressure Blood Pressure [Right Arm] O2 Sat by Pulse 100 Oximetry (%) EXAM gen: awake, alert, no acute distres HEENT: nasal congestion CV: RRR, no MRG Resp: Unlabored, NRB removed and maintained O2 sat >95%. Occasional diffuse wheezing Abd: Soft, NT, ND Ext: No peripheral edema Neuro: CN II-XII grossly intact Psych: AOx3, appropriate mood/affect Laboratory Results - last 24 hr 02/01/20 02/01/20 02/01/20 21:20 21:20 21:30 WBC 7.0 RBC 4.77 Hgb 15.1 Hct 45.4 MCV 95.0 MCH 31.6 MCHC 33.2 RDW 12.7 Plt Count 248 MPV 10.4 Absolute Neuts (auto) 2.3 Neutrophils % 32.8 L D Lymphocytes % 44.8 H D Monocytes % 12.7 H D Eosinophils % 9.0 H D Basophils % 0.7 D Nucleated RBC % 0 PT with INR 13.00 INR 1.10 H PTT (Actin FS) 31.4 D-Dimer Anticoagulation Therapy Puncture Site Patient Temperature ABG pH ABG pCO2 ABG pO2 ABG HCO3 ABG O2 Sat (Measured) ABG O2 Content ABG Base Excess Joey Test VBG pH POC VBG pCO2 POC VBG pO2 VBG HCO3 VBG O2 Sat (Aaron) VBG Base Excess Patient On Oxygen O2 Delivery Device Oxygen Flow Rate Vent Mode Vent Rate Mechanical Rate PEEP Pressure Support Vent Sodium Potassium Chloride Carbon Dioxide Anion Gap BUN Creatinine Est GFR (CKD-EPI)AfAm Est GFR (CKD-EPI)NonAf Random Glucose Lactic Acid 1.6 Calcium Ferritin Total Bilirubin Direct Bilirubin AST ALT Alkaline Phosphatase LD Total Creatine Kinase Creatine Kinase Index CK-MB (CK-2) Troponin I C-Reactive Protein Total Protein Albumin 02/01/20 02/01/20 02/01/20 21:30 21:30 21:30 WBC RBC Hgb Hct MCV MCH MCHC RDW Plt Count MPV Absolute Neuts (auto) Neutrophils % Lymphocytes % Monocytes % Eosinophils % Basophils % Nucleated RBC % PT with INR INR PTT (Actin FS) D-Dimer Anticoagulation Therapy Puncture Site Patient Temperature ABG pH ABG pCO2 ABG pO2 ABG HCO3 ABG O2 Sat (Measured) ABG O2 Content ABG Base Excess Joey Test VBG pH 7.182 L* POC VBG pCO2 80.9 H* POC VBG pO2 86.3 H VBG HCO3 29.7 H VBG O2 Sat (Aaron) 93.6 H VBG Base Excess -1.5 Patient On Oxygen O2 Delivery Device Oxygen Flow Rate Vent Mode Vent Rate Mechanical Rate PEEP Pressure Support Vent Sodium 136 Potassium 4.6 Chloride 99 Carbon Dioxide 31 Anion Gap 6 L BUN 11.5 Creatinine 1.2 Est GFR (CKD-EPI)AfAm 73.11 Est GFR (CKD-EPI)NonAf 63.08 Random Glucose 147 H Lactic Acid Calcium 9.1 Ferritin 178.2 Total Bilirubin 2.5 H Direct Bilirubin 0.4 H AST 32 ALT 23 Alkaline Phosphatase 58 LD Total 194 Creatine Kinase 226 Creatine Kinase Index 0.6 CK-MB (CK-2) 1.5 Troponin I < 0.02 C-Reactive Protein < 0.3 Total Protein 7.9 Albumin 4.3 02/01/20 02/02/20 21:30 00:37 WBC RBC Hgb Hct MCV MCH MCHC RDW Plt Count MPV Absolute Neuts (auto) Neutrophils % Lymphocytes % Monocytes % Eosinophils % Basophils % Nucleated RBC % PT with INR INR PTT (Actin FS) D-Dimer 248 Anticoagulation Therapy No Result Required. Puncture Site Right radial Patient Temperature No Result Required. ABG pH 7.347 L ABG pCO2 49.70 H ABG pO2 95.0 ABG HCO3 26.6 ABG O2 Sat (Measured) 96.8 ABG O2 Content No Result Required. ABG Base Excess 0.2 Joey Test Positive VBG pH POC VBG pCO2 POC VBG pO2 VBG HCO3 VBG O2 Sat (Aaron) VBG Base Excess Patient On Oxygen No Result Required. O2 Delivery Device No Result Required. Oxygen Flow Rate No Result Required. Vent Mode No Result Required. Vent Rate No Result Required. Mechanical Rate No Result Required. PEEP No Result Required. Pressure Support Vent No Result Required. Sodium Potassium Chloride Carbon Dioxide Anion Gap BUN Creatinine Est GFR (CKD-EPI)AfAm Est GFR (CKD-EPI)NonAf Random Glucose Lactic Acid Calcium Ferritin Total Bilirubin Direct Bilirubin AST ALT Alkaline Phosphatase LD Total Creatine Kinase Creatine Kinase Index CK-MB (CK-2) Troponin I C-Reactive Protein Total Protein Albumin ASSESSMENT AND PLAN: 64yoM with history of COPD, HTN, and chronic systolic HFrEF 25-30% who presents with acute onset shortness of breath, admitted with acute hypoxic/hypercapneic respiratory failure secondary to COPD exacerbation. Dx: Acute hypoxic hypercapneic respiratory failure COPD exacerbation HTN h/o CHF Plan: - prednisone 40mg daily x5 - continue ceftriaxone/azithromycin - Duoneb q4h - resume Symbicort - continue home antihypertensives - Lovenox subq for DVT ppx
[2020-02-02] MEDS ORDERED: HEPARIN NA (PORCINE) 5,000 UNITS/ML 1ML VIAL ONE ×2 (06:13→13:47)
[2020-02-02] MEDS: HEPARIN NA (PORCINE) 5,000 UNITS/ML 1ML VIAL SQ SCH ×3 (06:25→22:08)
[2020-02-02 06:56] LABS: ARTERIAL BLOOD GAS BASE EXCESS 1.4 mmol/L (-2-2); ARTERIAL BLOOD GAS PO2 60.3 mmHg (80-100); ARTERIAL BLOOD GAS pH 7.361 (7.350-7.450)
--- NOTE | 2020-02-02 07:07 | HP ---
CHIEF COMPLAINT: shortness of breath and difficulty breathing HISTORY OF PRESENT ILLNESS: 64yoM with history of COPD, HTN, and CHF (EF-30-35%) who presents with acute onset shortness of breath. Patient states he was shopping and felt short of breath so he immediately went to his car and came to the hospital. When he arrived at the hospital he had difficulty breathing and was unable to get out of his car without assistance. Patient was hypoxic in 60s on arrival to the ED, initial VBG 7.18/81. Patient also became delirious at this time. Placed on nonrebreather, multiple Duoneb treatments given with improvement in O2 sat and respiratory status and delirum resolved. Repeat ABG without positive pressure ventilation was 7.33/50/95. ER course was notable for: (1)hypoxic in the 60s which improved with non-rebreather mask (2)CXR without evidence of consolidation or fluid overload (3)dexamethasone and NS 500cc. Recent Travel: denies PAST MEDICAL HISTORY: COPD, HTN, CHF PAST SURGICAL HISTORY: Lap Beatris Cardiac cath (15 years ago) Social History: Smoking: used to 'smoke a lot' but quit 19 yo Alcohol:denies Drugs: denies Family History: HTN Allergies No Known Allergies Allergy (Verified 02/01/20 21:28) HOME MEDICATIONS: Home Medications Medication Instructions Recorded Carvedilol [Coreg] 12.5 mg PO BID #60 tablet 06/26/17 Furosemide [Lasix -] 20 mg PO DAILY #30 tablet 06/26/17 Enalapril Maleate [Vasotec -] 5 mg PO DAILY 08/06/19 Spironolactone [Aldactone -] 25 mg PO BID 08/06/19 Budesonide/Formeterol Fumarate 2 puff IH BID #1 inhaler 09/28/19 [SYMBICORT 160/4.5mcg -] REVIEW OF SYSTEMS CONSTITUTIONAL: +fatigue Absent: fever, chills, diaphoresis, generalized weakness, malaise, loss of appetite, weight change HEENT: + nasal congestion Absent: rhinorrhea, throat pain, throat swelling, difficulty swallowing, mouth swelling, ear pain, eye pain, visual changes CARDIOVASCULAR: Absent: chest pain, syncope, palpitations, irregular heart rate, lightheadedness, peripheral edema RESPIRATORY: +cough, shortness of breath, dyspnea with exertion wheezing Absent: cough, shortness of breath, dyspnea with exertion, orthopnea, wheezing, stridor, hemoptysis GASTROINTESTINAL: Absent: abdominal pain, abdominal distension, nausea, vomiting, diarrhea, constipation, melena, hematochezia GENITOURINARY: Absent: dysuria, frequency, urgency, hesitancy, hematuria, flank pain, genital pain MUSCULOSKELETAL: Absent: myalgia, arthralgia, joint swelling, back pain, neck pain SKIN: Absent: rash, itching, pallor HEMATOLOGIC/IMMUNOLOGIC: Absent: easy bleeding, easy bruising, lymphadenopathy, frequent infections ENDOCRINE: Absent: unexplained weight gain, unexplained weight loss, heat intolerance, cold intolerance NEUROLOGIC: Absent: headache, focal weakness or paresthesias, dizziness, unsteady gait, seizure, mental status changes, bladder or bowel incontinence PSYCHIATRIC: Absent: anxiety, depression, suicidal or homicidal ideation, hallucinations. PHYSICAL EXAMINATION Vital Signs - 24 hr 02/01/20 02/01/20 02/02/20 21:25 23:30 01:44 Temperature 97.2 F L 98.4 F Pulse Rate 105 H 72 Pulse Rate [ 82 Left Apical] Respiratory 22 H 18 17 Rate Blood Pressure 158/103 H 140/87 Blood Pressure 113/55 L [Right Arm] O2 Sat by Pulse 64 L 100 Oximetry (%) 02/02/20 02/02/20 02:01 06:10 Temperature 98.9 F 97.4 F L Pulse Rate Pulse Rate [ 72 Left Apical] Respiratory 17 Rate Blood Pressure Blood Pressure 130/59 L [Right Arm] O2 Sat by Pulse 100 100 Oximetry (%) GENERAL: AAOx3, in no acute distress HEENT: NCAT, PERRLA, EOMI, sclera anicteric, conjunctiva clear, oropharynx clear w/o exudates. MMM. NECK: Normal ROM, supple, no lymphadenopathy, JVD, or masses LUNGS: + wheezes b/l no rhonchi/ rales. No distress, speaks in full sentences. No increased work of breathing. HEART: RRR, normal S1 S2, no M/R/G, peripheral pulses 2+ and equal b/l ABDOMEN: Soft, NTND, + BS. No guarding or rebound. No hepatomegaly or splenomegaly. MSK: ROM WNL EXTREMITIES: Normal inspection. No peripheral edema. No clubbing or cyanosis. NEUROLOGICAL: CN II-XII intact. Normal speech, normal gait, no focal sensorimotor deficits. SKIN: Warm, Dry, normal turgor, no rashes or lesions noted Laboratory Results - last 24 hr CBC, BMP 02/01/20 21:30 02/01/20 21:30 02/01/20 02/01/20 02/01/20 21:20 21:20 21:30 WBC 7.0 RBC 4.77 Hgb 15.1 Hct 45.4 MCV 95.0 MCH 31.6 MCHC 33.2 RDW 12.7 Plt Count 248 MPV 10.4 Absolute Neuts (auto) 2.3 Neutrophils % 32.8 L D Lymphocytes % 44.8 H D Monocytes % 12.7 H D Eosinophils % 9.0 H D Basophils % 0.7 D Nucleated RBC % 0 PT with INR 13.00 INR 1.10 H PTT (Actin FS) 31.4 D-Dimer Anticoagulation Therapy Puncture Site Patient Temperature ABG pH ABG pCO2 ABG pO2 ABG HCO3 ABG O2 Sat (Measured) ABG O2 Content ABG Base Excess Joey Test VBG pH POC VBG pCO2 POC VBG pO2 VBG HCO3 VBG O2 Sat (Aaron) VBG Base Excess Patient On Oxygen O2 Delivery Device Oxygen Flow Rate Vent Mode Vent Rate Mechanical Rate PEEP Pressure Support Vent Sodium Potassium Chloride Carbon Dioxide Anion Gap BUN Creatinine Est GFR (CKD-EPI)AfAm Est GFR (CKD-EPI)NonAf Random Glucose Lactic Acid 1.6 Calcium Ferritin Total Bilirubin Direct Bilirubin AST ALT Alkaline Phosphatase LD Total Creatine Kinase Creatine Kinase Index CK-MB (CK-2) Troponin I C-Reactive Protein Total Protein Albumin 02/01/20 02/01/20 02/01/20 21:30 21:30 21:30 WBC RBC Hgb Hct MCV MCH MCHC RDW Plt Count MPV Absolute Neuts (auto) Neutrophils % Lymphocytes % Monocytes % Eosinophils % Basophils % Nucleated RBC % PT with INR INR PTT (Actin FS) D-Dimer Anticoagulation Therapy Puncture Site Patient Temperature ABG pH ABG pCO2 ABG pO2 ABG HCO3 ABG O2 Sat (Measured) ABG O2 Content ABG Base Excess Joey Test VBG pH 7.182 L* POC VBG pCO2 80.9 H* POC VBG pO2 86.3 H VBG HCO3 29.7 H VBG O2 Sat (Aaron) 93.6 H VBG Base Excess -1.5 Patient On Oxygen O2 Delivery Device Oxygen Flow Rate Vent Mode Vent Rate Mechanical Rate PEEP Pressure Support Vent Sodium 136 Potassium 4.6 Chloride 99 Carbon Dioxide 31 Anion Gap 6 L BUN 11.5 Creatinine 1.2 Est GFR (CKD-EPI)AfAm 73.11 Est GFR (CKD-EPI)NonAf 63.08 Random Glucose 147 H Lactic Acid Calcium 9.1 Ferritin 178.2 Total Bilirubin 2.5 H Direct Bilirubin 0.4 H AST 32 ALT 23 Alkaline Phosphatase 58 LD Total 194 Creatine Kinase 226 Creatine Kinase Index 0.6 CK-MB (CK-2) 1.5 Troponin I < 0.02 C-Reactive Protein < 0.3 Total Protein 7.9 Albumin 4.3 02/01/20 02/02/20 21:30 00:37 WBC RBC Hgb Hct MCV MCH MCHC RDW Plt Count MPV Absolute Neuts (auto) Neutrophils % Lymphocytes % Monocytes % Eosinophils % Basophils % Nucleated RBC % PT with INR INR PTT (Actin FS) D-Dimer 248 Anticoagulation Therapy No Result Required. Puncture Site Right radial Patient Temperature No Result Required. ABG pH 7.347 L ABG pCO2 49.70 H ABG pO2 95.0 ABG HCO3 26.6 ABG O2 Sat (Measured) 96.8 ABG O2 Content No Result Required. ABG Base Excess 0.2 Joey Test Positive VBG pH POC VBG pCO2 POC VBG pO2 VBG HCO3 VBG O2 Sat (Aaron) VBG Base Excess Patient On Oxygen No Result Required. O2 Delivery Device No Result Required. Oxygen Flow Rate No Result Required. Vent Mode No Result Required. Vent Rate No Result Required. Mechanical Rate No Result Required. PEEP No Result Required. Pressure Support Vent No Result Required. Sodium Potassium Chloride Carbon Dioxide Anion Gap BUN Creatinine Est GFR (CKD-EPI)AfAm Est GFR (CKD-EPI)NonAf Random Glucose Lactic Acid Calcium Ferritin Total Bilirubin Direct Bilirubin AST ALT Alkaline Phosphatase LD Total Creatine Kinase Creatine Kinase Index CK-MB (CK-2) Troponin I C-Reactive Protein Total Protein Albumin ASSESSMENT/PLAN: 65 y/o male with PMX of HTN, CHF who is presenting with SOB and difficulty breathing. Admitted for Hypercapnic hypoxic respiratory failure secondary to COPD exacerbation. #Hypercapnic hypoxic respiratory failure secondary to COPD exacerbation -CXR- no evidence of consolidation or fluid overload -repeat abg ordered for the AM -NC ordered keep O2 levels b/w 90-94% - prednisone 40mg daily x5 - continue ceftriaxone/azithromycin - Duoneb q4h - resume Symbicort #HTN -restart home meds when necessary -monitor BP readings #FEN -no standing fluids -monitor lytes, replete PRN -low sodium diet #Prophylaxis -Heparin SQ TID dispo- continue to monitor in m/s Family Medical History Family History: As Documented Visit type - Medication Review Med list reviewed for High Risk Meds patients 65 and older: Yes - Emergency Visit Emergency Visit: Yes ED Registration Date: 02/01/20 Care time: The patient presented to the Emergency Department on the above date and was hospitalized for further evaluation of their emergent condition. - New Patient This patient is new to me today: Yes Date on this admission: 02/02/20 - Critical Care Critical Care patient: No ATTENDING PHYSICIAN STATEMENT I saw and evaluated the patient. I reviewed the resident's note and discussed the case with the resident. I agree with the resident's findings and plan as documented. SUBJECTIVE: OBJECTIVE: ASSESSMENT AND PLAN:
[2020-02-02] MEDS ORDERED: predniSONE 20 MG TABLET (UD) ONE (09:32)
[2020-02-02] MEDS: predniSONE 20 MG TABLET (UD) PO SCH (09:36)
--- NOTE | 2020-02-02 12:38 | PN ---
Physical Exam: SUBJECTIVE: Patient seen and examined Much stable now no chest pain no shortness of breath. He said he has history of heart failure and he follow-up with [facility]. He has not taken his medication for few days that is what set up the symptoms of shortness of breath. OBJECTIVE: Vital Signs Period Temp Pulse Resp BP Sys/Boo Pulse Ox Last 24 Hr 97.2 F-98.9 F 72-105 17-22 113-158/55-103 64-100 Patient is comfortable HEENT normal Neck supple no JVD Lungs clear no wheezing Abdomen nontender no organomegaly bowel sounds normal Extremities no edema no cyanosis normal pulses Neurologically he is alert awake oriented, nonfocal Skin no rash noted Heart examination normal heart sounds no murmur noted. Laboratory Results - last 24 hr 02/01/20 02/01/20 02/01/20 21:20 21:20 21:30 WBC 7.0 RBC 4.77 Hgb 15.1 Hct 45.4 MCV 95.0 MCH 31.6 MCHC 33.2 RDW 12.7 Plt Count 248 MPV 10.4 Absolute Neuts (auto) 2.3 Neutrophils % 32.8 L D Lymphocytes % 44.8 H D Monocytes % 12.7 H D Eosinophils % 9.0 H D Basophils % 0.7 D Nucleated RBC % 0 PT with INR 13.00 INR 1.10 H PTT (Actin FS) 31.4 D-Dimer Anticoagulation Therapy Puncture Site Patient Temperature ABG pH ABG pCO2 ABG pO2 ABG HCO3 ABG O2 Sat (Measured) ABG O2 Content ABG Base Excess Joey Test VBG pH POC VBG pCO2 POC VBG pO2 VBG HCO3 VBG O2 Sat (Aaron) VBG Base Excess Patient On Oxygen O2 Delivery Device Oxygen Flow Rate Vent Mode Vent Rate Mechanical Rate PEEP Pressure Support Vent Sodium Potassium Chloride Carbon Dioxide Anion Gap BUN Creatinine Est GFR (CKD-EPI)AfAm Est GFR (CKD-EPI)NonAf Random Glucose Lactic Acid 1.6 Calcium Ferritin Total Bilirubin Direct Bilirubin AST ALT Alkaline Phosphatase LD Total Creatine Kinase Creatine Kinase Index CK-MB (CK-2) Troponin I C-Reactive Protein Total Protein Albumin 02/01/20 02/01/20 02/01/20 21:30 21:30 21:30 WBC RBC Hgb Hct MCV MCH MCHC RDW Plt Count MPV Absolute Neuts (auto) Neutrophils % Lymphocytes % Monocytes % Eosinophils % Basophils % Nucleated RBC % PT with INR INR PTT (Actin FS) D-Dimer Anticoagulation Therapy Puncture Site Patient Temperature ABG pH ABG pCO2 ABG pO2 ABG HCO3 ABG O2 Sat (Measured) ABG O2 Content ABG Base Excess Joey Test VBG pH 7.182 L* POC VBG pCO2 80.9 H* POC VBG pO2 86.3 H VBG HCO3 29.7 H VBG O2 Sat (Aaron) 93.6 H VBG Base Excess -1.5 Patient On Oxygen O2 Delivery Device Oxygen Flow Rate Vent Mode Vent Rate Mechanical Rate PEEP Pressure Support Vent Sodium 136 Potassium 4.6 Chloride 99 Carbon Dioxide 31 Anion Gap 6 L BUN 11.5 Creatinine 1.2 Est GFR (CKD-EPI)AfAm 73.11 Est GFR (CKD-EPI)NonAf 63.08 Random Glucose 147 H Lactic Acid Calcium 9.1 Ferritin 178.2 Total Bilirubin 2.5 H Direct Bilirubin 0.4 H AST 32 ALT 23 Alkaline Phosphatase 58 LD Total 194 Creatine Kinase 226 Creatine Kinase Index 0.6 CK-MB (CK-2) 1.5 Troponin I < 0.02 C-Reactive Protein < 0.3 Total Protein 7.9 Albumin 4.3 02/01/20 02/02/20 02/02/20 21:30 00:37 06:35 WBC RBC Hgb Hct MCV MCH MCHC RDW Plt Count MPV Absolute Neuts (auto) Neutrophils % Lymphocytes % Monocytes % Eosinophils % Basophils % Nucleated RBC % PT with INR INR PTT (Actin FS) D-Dimer 248 Anticoagulation Therapy No Result Required. No Result Required. Puncture Site Right radial Left brachial Patient Temperature No Result Required. No Result Required. ABG pH 7.347 L 7.361 ABG pCO2 49.70 H 50.10 H ABG pO2 95.0 60.3 L ABG HCO3 26.6 27.7 H ABG O2 Sat (Measured) 96.8 90.0 L ABG O2 Content No Result Required. No Result Required. ABG Base Excess 0.2 1.4 Joey Test Positive Not applicable VBG pH POC VBG pCO2 POC VBG pO2 VBG HCO3 VBG O2 Sat (Aaron) VBG Base Excess Patient On Oxygen No Result Required. No O2 Delivery Device No Result Required. No Result Required. Oxygen Flow Rate No Result Required. Room air Vent Mode No Result Required. No Result Required. Vent Rate No Result Required. No Result Required. Mechanical Rate No Result Required. No PEEP No Result Required. No Result Required. Pressure Support Vent No Result Required. No Result Required. Sodium Potassium Chloride Carbon Dioxide Anion Gap BUN Creatinine Est GFR (CKD-EPI)AfAm Est GFR (CKD-EPI)NonAf Random Glucose Lactic Acid Calcium Ferritin Total Bilirubin Direct Bilirubin AST ALT Alkaline Phosphatase LD Total Creatine Kinase Creatine Kinase Index CK-MB (CK-2) Troponin I C-Reactive Protein Total Protein Albumin Active Medications Generic Name Dose Route Start Last Admin Trade Name Freq PRN Reason Stop Dose Admin Albuterol/Ipratropium amp 02/01/20 21:28 Duoneb - NEB 02/01/20 21:29 ONCE ONE Budesonide/Formoterol Fumarate 2 puff 02/02/20 22:00 Symbicort 160/4.5mcg - IH BID BONNIE Carvedilol 12.5 mg 02/02/20 22:00 Coreg - PO BID BONNIE Enalapril Maleate 5 mg 02/03/20 10:00 Vasotec - PO DAILY BONNIE Furosemide 20 mg 02/03/20 10:00 Lasix - PO DAILY [facility] Heparin Sodium (Porcine) 5,000 unit 02/02/20 06:00 02/02/20 06:25 Heparin - SQ 5,000 unit TID BONNIE Administration Prednisone 40 mg 02/02/20 10:00 02/02/20 09:36 Deltasone - PO 02/06/20 10:00 40 mg DAILY BONNIE Administration Spironolactone 25 mg 02/02/20 22:00 Aldactone - PO BID [facility] ASSESSMENT/PLAN: 64yoM with history of COPD, HTN, and chronic systolic HFrEF 25-30% who presents with acute onset shortness of breath, admitted with acute hypoxic/hypercapneic respiratory failure secondary to COPD exacerbation. COPD exacerbation continue nebulizers prednisone and antibiotics. He has extensive history of congestive heart failure will start him on his home medication which I reviewed with him. Will order a troponin level today. If it stable he might be able to go home today. Visit type - Emergency Visit Emergency Visit: Yes ED Registration Date: 02/01/20 Care time: The patient presented to the Emergency Department on the above date and was hospitalized for further evaluation of their emergent condition. - New Patient This patient is new to me today: Yes Date on this admission: 02/02/20 - Critical Care Critical Care patient: No - Discharge Referral Referred to [facility] No - Medication Review Med list reviewed for High Risk Meds patients 65 and older: Yes
--- NOTE | 2020-02-02 12:41 | EKG ---
Test Reason : Blood Pressure : / mmHG Vent. Rate : 093 BPM Atrial Rate : 093 BPM P-R Int : 206 ms QRS Dur : 108 ms QT Int : 398 ms P-R-T Axes : 067 058 247 degrees QTc Int : 494 ms SINUS RHYTHM WITH OCCASIONAL PREMATURE VENTRICULAR COMPLEXES INCOMPLETE LEFT BUNDLE BRANCH BLOCK VOLTAGE CRITERIA FOR LEFT VENTRICULAR HYPERTROPHY T WAVE ABNORMALITY, CONSIDER INFEROLATERAL ISCHEMIA PROLONGED QT ABNORMAL ECG WHEN COMPARED WITH ECG OF 25-SEP-2019 09:29, NO SIGNIFICANT CHANGE WAS FOUND Confirmed by Sumit Casas ([id number]) on 02/02/2020 12:41:26 PM Referred By: Confirmed By:Sumit Casas
[2020-02-02] MEDS ORDERED: CARVEDILOL 12.5 MG TABLET (FP) ONE (13:46)
[2020-02-02] MEDS ORDERED: ENALAPRIL MALEATE 5 MG TABLET (FP) ONE (13:46)
[2020-02-02] MEDS ORDERED: FUROSEMIDE 40 MG TABLET (FP) ONE (13:46)
[2020-02-02] MEDS: FUROSEMIDE 20 MG TABLET (FP) PO SCH (13:58)
[2020-02-02] MEDS: CARVEDILOL 12.5 MG TABLET (FP) PO SCH ×2 (13:58→22:08)
[2020-02-02] MEDS: ENALAPRIL MALEATE 5 MG TABLET (FP) PO SCH (13:58)
[2020-02-02 15:04] VITALS: BMI 26.6
[2020-02-02] MEDS ORDERED: PNEUMOC 13-VAL CONJ-DIP CRM/PF 0.5 ML DISP.SYRIN IM ONE (17:00)
[2020-02-02] MEDS: SPIRONOLACTONE 25 MG TABLET PO SCH (22:07)
[2020-02-02] MEDS: BUDESONIDE/FORMETEROL FUMARATE 160/4.5 mcg INHALER IH SCH (23:00)
[2020-02-03] MEDS: HEPARIN NA (PORCINE) 5,000 UNITS/ML 1ML VIAL SQ SCH (06:01)
[2020-02-03 08:41] LABS: BASO % 0.4 % (0-2.0); EOS % 0.3 % (0-4.5); HEMATOCRIT 43.7 % (35.4-49); HEMOGLOBIN 14.3 GM/dL (11.7-16.9); LYMPH % 18.8 % (8-40); MCHC 32.7 g/dl (32.0-35.9); MEAN CELL VOLUME 94.8 fl (80-96); MEAN PLT VOLUME 9.6 fl (7.5-11.1); MONO % 9.3 % (3.8-10.2); NEUT % 71.2 % (42.8-82.8); PLATELET COUNT 208 K/MM3 (134-434); RBC 4.61 M/mm3 (4.00-5.60); RDW 12.9 % (11.9-15.9); WHITE BLOOD COUNT 11.3 K/mm3 (4.0-10.0)
[2020-02-03 09:01] LABS: ALBUMIN 3.9 g/dl (3.4-5.0); BILIRUBIN,TOTAL 2.3 mg/dL (0.2-1); BLOOD UREA NITROGEN 19.1 mg/dL (7-18); CALCIUM 9.4 mg/dL (8.5-10.1); CREATININE 1.3 mg/dL (0.55-1.3); MAGNESIUM 2.4 mg/dL (1.8-2.4); PHOSPHOROUS 3.4 mg/dL (2.5-4.9); POTASSIUM 3.6 mmol/L (3.5-5.1); TOT PROT 7.2 g/dl (6.4-8.2)
[2020-02-03] MEDS: predniSONE 20 MG TABLET (UD) PO SCH (09:25)
[2020-02-03] MEDS: CARVEDILOL 12.5 MG TABLET (FP) PO SCH (09:25)
[2020-02-03] MEDS: FUROSEMIDE 20 MG TABLET (FP) PO SCH (09:25)
[2020-02-03] MEDS: ENALAPRIL MALEATE 5 MG TABLET (FP) PO SCH (09:25)
[2020-02-03] MEDS: SPIRONOLACTONE 25 MG TABLET PO SCH (09:25)
[2020-02-03] MEDS: BUDESONIDE/FORMETEROL FUMARATE 160/4.5 mcg INHALER IH SCH (09:26)
--- NOTE | 2020-02-03 10:26 | PN ---
Physical Exam: SUBJECTIVE: Patient seen and examined OBJECTIVE: Vital Signs Period Temp Pulse Resp BP Sys/Boo Pulse Ox Last 24 Hr 97.6 F-98.1 F 84-91 17-18 125-143/54-64 94-98 Laboratory Results - last 24 hr 02/02/20 02/02/20 02/03/20 00:50 15:21 08:10 WBC 11.3 H RBC 4.61 Hgb 14.3 Hct 43.7 MCV 94.8 MCH 31.0 MCHC 32.7 RDW 12.9 Plt Count 208 MPV 9.6 Absolute Neuts (auto) 8.1 H Neutrophils % 71.2 D Lymphocytes % 18.8 D Monocytes % 9.3 Eosinophils % 0.3 D Basophils % 0.4 Nucleated RBC % 0 Sodium Potassium Chloride Carbon Dioxide Anion Gap BUN Creatinine Est GFR (CKD-EPI)AfAm Est GFR (CKD-EPI)NonAf Random Glucose Calcium Phosphorus Magnesium Total Bilirubin AST ALT Alkaline Phosphatase Troponin I < 0.02 Total Protein Albumin COVID-19 (GALO) Not detected 02/03/20 08:10 WBC RBC Hgb Hct MCV MCH MCHC RDW Plt Count MPV Absolute Neuts (auto) Neutrophils % Lymphocytes % Monocytes % Eosinophils % Basophils % Nucleated RBC % Sodium 140 Potassium 3.6 Chloride 102 Carbon Dioxide 30 Anion Gap 9 BUN 19.1 H Creatinine 1.3 Est GFR (CKD-EPI)AfAm 66.36 Est GFR (CKD-EPI)NonAf 57.26 Random Glucose 96 Calcium 9.4 Phosphorus 3.4 Magnesium 2.4 Total Bilirubin 2.3 H AST 12 L ALT 21 Alkaline Phosphatase 53 Troponin I Total Protein 7.2 Albumin 3.9 COVID-19 (GALO) Active Medications Generic Name Dose Route Start Last Admin Trade Name Freq PRN Reason Stop Dose Admin Budesonide/Formoterol Fumarate 2 puff 02/02/20 22:00 02/03/20 09:26 Symbicort 160/4.5mcg - IH 2 puff BID BONNIE Administration Carvedilol 12.5 mg 02/02/20 22:00 02/03/20 09:25 Coreg - PO 12.5 mg BID BONNIE Administration Enalapril Maleate 5 mg 02/03/20 10:00 02/03/20 09:25 Vasotec - PO 5 mg DAILY BONNIE Administration Furosemide 20 mg 02/03/20 10:00 02/03/20 09:25 Lasix - PO 20 mg DAILY BONNIE Administration Heparin Sodium (Porcine) 5,000 unit 02/02/20 06:00 02/03/20 06:01 Heparin - SQ 5,000 unit TID BONNIE Administration Prednisone 40 mg 02/02/20 10:00 02/03/20 09:25 Deltasone - PO 02/06/20 10:00 40 mg DAILY BONNIE Administration Spironolactone 25 mg 02/02/20 22:00 02/03/20 09:25 Aldactone - PO 25 mg BID BONNIE Administration ASSESSMENT/PLAN: ATTENDING PHYSICIAN STATEMENT I saw and evaluated the patient. I reviewed the resident's note and discussed the case with the resident. I agree with the resident's findings and plan as documented. SUBJECTIVE: OBJECTIVE: ASSESSMENT AND PLAN:
--- NOTE | 2020-02-03 12:10 | PN ---
Teaching Attending Note Name of Resident: Oriana Nielson ATTENDING PHYSICIAN STATEMENT I saw and evaluated the patient. I reviewed the resident's note and discussed the case with the resident. I agree with the resident's findings and plan as documented. SUBJECTIVE: OBJECTIVE: ASSESSMENT AND PLAN: 64yo Male with a history of COPD, HTN, and chronic systolic HFrEF 25-30% who presents with acute onset shortness of breath, admitted with acute hypoxic/hypercapneic respiratory failure secondary to COPD exacerbation. Now improved COPD exacerbation continue nebulizers prednisone and antibiotics. Would discharge home today
--- NOTE | 2020-02-03 12:58 | DS ---
Physical Exam: SUBJECTIVE: Patient seen and examined. No acute events overnight. Pt denied fevers, chills, shortness of breath, abdominal pain, nausea, vomiting or diarrhea. OBJECTIVE: Vital Signs Period Temp Pulse Resp BP Sys/Boo Pulse Ox Last 24 Hr 97.6 F-98.1 F 81-91 17-18 113-143/54-64 94-98 PHYSICAL EXAM GENERAL: The patient is awake, alert, and fully oriented, in no acute distress. HEENT: NCAT, EOMI, nasal congestion, no nasal exudates. Moist mucus membranes. LUNGS: Expiratory wheeze heard on L. No accessory muscle use. HEART: Regular rate and rhythm, S1, S2 without murmur.. ABDOMEN: Soft, nontender, nondistended, normoactive bowel sounds EXTREMITIES: warm, well-perfused, no edema SKIN: Warm, dry LABS CBC, BMP 02/03/20 08:10 02/03/20 08:10 HOSPITAL COURSE: 65 year old M with PMH HTN, CHF, COPD presented to ED with shortness of breath. Pt admitted for hypercapneic hypoxic respiratory failure secondary to COPD exacerbation. CXR negative for fluid overload or acute pathology. VBG on admission showed acidosis. Pt received steroids, racemic epinephrine, duonebs, supplemental oxygen and repeat ABG showed reversal of acidosis. Pt reported improved symptoms. Currently denies fevers, chills, shortness of breath, chest pain, nausea, vomiting or diarrhea. He is hemodynamically stable and is medically optimized for discharge to his home. Date of Admission:02/01/20 Date of Discharge: 02/03/20 Minutes to complete discharge: 36 Discharge Summary Problems reviewed: Yes Reason For Visit: HYPOXIA,CHRONIC OBSTRUCTIVE PULMONARY DISEASE Current Active Problems Acute respiratory failure with hypoxia (Acute) COPD (chronic obstructive pulmonary disease) (Acute) Hypoxia (Acute) Respiratory failure (Acute) Shortness of breath (Acute) Condition: Improved - Instructions Diet, Activity, Other Instructions: Hospital course: You were admitted to the hospital for your difficulty breathing. You had imaging of your chest, which showed no concerning findings. We also evaluated the level of gas in your blood. You were treated with steroids and inhaled treatment with improvement of your symptoms. Medications changes: -Please continue to take your Prednisone as instructed below. Each pill is 5 mg: Day #1 02/03 Take 8 pills of 5 mg. Total dose is 40 mg. Day #2 02/04 Take 6 pills of 5 mg. Total dose is 30 mg. Day #3 02/05 Take 6 pills of 5 mg. Total dose is 30 mg. Day #4 02/06 Take 4 pills of 5 mg. Total dose is 20 mg. Day #5 02/07 Take 4 pills of 5 mg. Total dose is 20 mg. Day #6 02/08 Take 2 pills of 5 mg. Total dose is 10 mg. Day #7 02/09 Take 1 pill of 5 mg. Total dose is 5 mg. -Continue to take all your home medications as prescribed. Follow up: - Please follow-up with your [employer] Clerk, Dr. Pino, in 1 week. - Visit with your Primary Care Provider, Dr. Collado, in 2 weeks. Additional Instructions: -You are being discharged to your home. -Please return to the Emergency Department if you experience worsening pain, fevers, chills, shortness of breath, or chest pain, or if you experience any worsening, new or concerning symptoms. Referrals: Clarence Pino MD [Staff Physician] - 1 Week Morteza Collado MD [Staff Physician] - 2 Weeks Disposition: HOME - Home Medications Comprehensive Discharge Medication List: Ambulatory Orders Carvedilol [Coreg] 12.5 mg PO BID #60 tablet 06/26/17 Furosemide [Lasix -] 20 mg PO DAILY #30 tablet 06/26/17 Enalapril Maleate [Vasotec -] 5 mg PO DAILY 08/06/19 Spironolactone [Aldactone -] 25 mg PO BID 08/06/19 Budesonide/Formeterol Fumarate [SYMBICORT 160/4.5mcg -] 2 puff IH BID #1 inhaler 09/28/19 Prednisone See Taper PO DAILY #31 tab.ds.pk 02/03/20 This patient is new to me today: Yes Date on this admission: 02/03/20 Emergency Visit: Yes ED Registration Date: 02/01/20 Care time: The patient presented to the Emergency Department on the above date and was hospitalized for further evaluation of their emergent condition. Critical Care patient: No - Discharge Referral Referred to [facility] No ATTENDING PHYSICIAN STATEMENT I saw and evaluated the patient. I reviewed the resident's note and discussed the case with the resident. I agree with the resident's findings and plan as documented. SUBJECTIVE: OBJECTIVE: ASSESSMENT AND PLAN:
[2020-02-03 14:29] VITALS: BP 119/51; PULSE 75; TEMP 98.4
== END 2020-02-03 14:59 | disposition home or self-care (01) | DRG 189 ==
LOC: JER 21:21 → JERBED 23:03 → J6S 02-02 14:44
PROVIDERS: ADMIT Hospitalist; ATTEND Internal Medicine
DX: J96.01 Acute respiratory failure with hypoxia (principal); J44.1 Chronic obstructive pulmonary disease with (acute) exacerbation; I50.22 Chronic systolic (congestive) heart failure; E87.2 Acidosis; J96.02 Acute respiratory failure with hypercapnia; I11.0 Hypertensive heart disease with heart failure
CPT/HCPCS: 36415; 36600; 71045-TC-FY; 80053; 82248; 82550; 82553; 82728; 82803; 83605; 83615; 83735; 84100; 84484; 85025; 85379; 85610; 85730; 86140; 87040; 90670; 93005; 93010; 97116-GP; 97161-GP; 99285-25; J1644; U0003

== ENCOUNTER 2020-09-10 18:43 | Emergency (ER) | payer OTHER ==
[2020-09-10] MEDS ORDERED: LORazepam 2 MG/ML SDV VIAL ONE (18:47)
[2020-09-10] MEDS ORDERED: RAPID SEQUENCE INTUBATION KIT NR ONE (18:48)
[2020-09-10] MEDS ORDERED: SODIUM CHLORIDE 0.9% 1000 ML INFUS.BAG IV ONE ×2 (19:14→21:51)
[2020-09-10] MEDS ORDERED: FENTANYL IVPB 500 MCG/100 ML BAG IVPB SCH (19:15)
[2020-09-10] MEDS ORDERED: MIDAZOLAM 100 MG in SODIUM CHLORIDE 100 ML IVPB SCH (19:15)
[2020-09-10 19:24] VITALS: TEMP 97.9; BMI 25.0
[2020-09-10] MEDS ORDERED: MIDAZOLAM HCL 2 MG/2 ML SINGLE DOSE VIAL IVPUSH ONE ×2 (19:26→21:56)
[2020-09-10] MEDS ORDERED: MIDAZOLAM HCL 2 MG/2 ML SINGLE DOSE VIAL ONE ×2 (19:27→20:24)
[2020-09-10 19:30] LABS: VENOUS BASE EXCESS -10.6 mmol/L (-2-2); VENOUS O2 SATURATION 65.7 % (70-80)
[2020-09-10 19:41] LABS: VENOUS PCO2 148.3 mmHg (38-52); VENOUS PH 6.868 (7.310-7.410)
[2020-09-10] MEDS ORDERED: methylPREDNISolone NA SUCC 125 MG/2 ML VIAL IVPB ONE (19:43)
[2020-09-10] MEDS ORDERED: ALBUTEROL SO4 2.5/IPRATROPIUM 0.5 INH SOL 3 ML VIAL.NEB. NEB ONE ×3 (19:43)
[2020-09-10 19:48] LABS: CHLORIDE 103 mmol/L (98-107); SODIUM 139 mmol/L (136-145)
[2020-09-10 19:50] LABS: CALCIUM 8.6 mg/dL (8.5-10.1)
[2020-09-10 19:51] LABS: ALBUMIN 3.8 g/dl (3.4-5.0); ANION GAP 6 MMOL/L (8-16); BLOOD UREA NITROGEN 20.3 mg/dL (7-18); CO2 30 mmol/L (21-32); GLUCOSE,RANDOM 243 mg/dL (74-106); MAGNESIUM 2.5 mg/dL (1.8-2.4)
[2020-09-10 19:54] LABS: CREATININE 1.6 mg/dL (0.55-1.3); PHOSPHOROUS 5.2 mg/dL (2.5-4.9); SGOT/AST 23 U/L (15-37); SGPT/ALT 20 U/L (13-61)
[2020-09-10 19:56] LABS: BASO % 0.2 % (0-2.0); BILIRUBIN,TOTAL 2.3 mg/dL (0.2-1); EOS % 2.1 % (0-4.5); HEMATOCRIT 39.2 % (35.4-49); HEMOGLOBIN 12.8 GM/dL (11.7-16.9); LYMPH % 36.7 % (8-40); MCH 31.5 pg (25.7-33.7); MCHC 32.6 g/dl (32.0-35.9); MEAN CELL VOLUME 96.6 fl (80-96); MEAN PLT VOLUME 9.9 fl (7.5-11.1); MONO % 8.8 % (3.8-10.2); NEUT % 52.2 % (42.8-82.8); PLATELET COUNT 237 K/MM3 (134-434); RBC 4.05 M/mm3 (4.00-5.60); RDW 13.1 % (11.9-15.9); TOT PROT 7.1 g/dl (6.4-8.2); WHITE BLOOD COUNT 11.4 K/mm3 (4.0-10.0)
[2020-09-10 19:57] LABS: ALK PHOS 77 U/L (45-117)
[2020-09-10 20:00] LABS: INR 1.14 (0.83-1.09); N-TERMINAL BNP 1168.9 pg/ml (5-125); PROTHROMBIN TIME (PATIENT) 13.7 SEC (9.7-13.0)
[2020-09-10 20:03] LABS: ACTIVATED PTT 28.2 SECONDS (25.2-36.5); LACTIC ACID 6.3 mmol/L (0.4-2.0)
[2020-09-10] MEDS ORDERED: MIDAZOLAM 100 MG/100 ML MG IVPB ONE (20:13)
[2020-09-10] MEDS ORDERED: PT OWN MED DRAWER 7, Y5N ONE ×2 (20:13→20:15)
[2020-09-10] MEDS ORDERED: FENTANYL IVPB 500 MCG/100 ML BAG IVPB ONE (20:16)
[2020-09-10] MEDS ORDERED: methylPREDNISolone NA SUCC 125 MG/2 ML VIAL ONE (20:47)
[2020-09-10 20:58] LABS: ARTERIAL BLD GAS O2 SATURATION 98.7 mmHg (95-98); ARTERIAL BLOOD GAS BASE EXCESS -4.6 mmol/L (-2-2); ARTERIAL BLOOD GAS PO2 154.9 mmHg (80-100); ARTERIAL BLOOD GAS pH 7.272 (7.350-7.450)
[2020-09-10 20:59] LABS: ALLENS TEST POSITIVE
[2020-09-10 21:00] LABS: VENT MODE A/C; VENT RATE 20
[2020-09-10] MEDS ORDERED: methylPREDNISolone NA SUCC 40 MG/1 ML VIAL IVPUSH SCH (21:15)
[2020-09-10] MEDS ORDERED: SODIUM CHLORIDE 1,000 ML IV SCH (21:30)
[2020-09-10] MEDS ORDERED: PIPERACILLIN/TAZOB 3.375 GM 3.375 GM in DEXTROSE 5%-WATER - 50 ML IVPB ONE (21:35)
[2020-09-10] MEDS ORDERED: VANCOMYCIN 1 GM in D5W (PRE-DOCKED) 1,000 MG/250 ML IVPB ONE (21:35)
[2020-09-10] MEDS ORDERED: CHLORHEXIDINE GLUCONATE 4% CLEANSER FOR DECOLONIZATION TP SCH (22:00)
[2020-09-10] MEDS ORDERED: MUPIROCIN 2% TOPICAL OINTMENT FOR DECOLONIZATION NS SCH (22:00)
[2020-09-10] MEDS ORDERED: VANCOMYCIN 1 GRAM (PRE-DOCKED) 1,000 MG/250 ML BAG IVPB ONE (22:04)
[2020-09-10] MEDS ORDERED: PIPERACILLIN/TAZOB 3.375 GM 3.375 GM/50 ML BAG IVPB ONE (22:04)
[2020-09-10 23:41] VITALS: BP 126/59; PULSE 63
[2020-09-11] MEDS ORDERED: FENTANYL NS IVPB 500 MCG/100 ML BAG IVPB SCH ×2 (00:45→01:00)
[2020-09-11] MEDS ORDERED: FENTANYL NS IVPB 500 MCG/100 ML BAG IVPB ONE (00:46)
[2020-09-11] MEDS ORDERED: MIDAZOLAM HCL 2 MG/2 ML SINGLE DOSE VIAL ONE (00:47)
[2020-09-11] MEDS ORDERED: MIDAZOLAM HCL 5 MG/1 ML Single Dose Vial IVPUSH ONE (00:48)
[2020-09-11] MEDS ORDERED: CEFTRIAXONE 2 GM in DEXTROSE 5%-WATER 100 ML IVPB SCH (10:00)
[2020-09-11] MEDS ORDERED: AZITHROMYCIN IVPB 500 MG/250 ML BAG IVPB SCH (10:00)
== END 2020-09-11 01:10 | disposition short-term general hospital (02) ==
LOC: JER 18:43 → UNDOADMIN 20:43 → JERBED 20:43
PROC: 0BH17EZ Insertion of Endotracheal Airway into Trachea, Via Natural or Artificial Opening (ICD-10-PCS; principal; 2020-09-10)
DX: J96.21 Acute and chronic respiratory failure with hypoxia (principal); N17.9 Acute kidney failure, unspecified; J44.9 Chronic obstructive pulmonary disease, unspecified
CPT/HCPCS: 36415; 36600; 70450-TC; 71045-TC-FY; 71275-TC; 72125-TC; 80053; 80307; 82550; 82553; 82803; 83605; 83735; 83880; 84100; 84484; 85025; 85610; 85730; 86850; 86900; 86901; 87804; 93005; 93010; 99291; 99292; C9803; Q9967; U0003; U0005

== ENCOUNTER 2020-11-27 02:23 | Inpatient (IN) | payer OTHER ==
[2020-11-27] MEDS ORDERED: EPINEPHrine 1:10,000 (P-F SYR) 1 MG/10 ML DISP.SYRIN ONE (02:44)
[2020-11-27] MEDS ORDERED: SODIUM BICARBONATE 8.4% - 50 ML ONE (02:47)
[2020-11-27] MEDS ORDERED: MIDAZOLAM IN 0.9 % SOD.CHLORID 1 MG/1 ML PLAST..BAG ONE (03:00)
[2020-11-27 03:07] LABS: BASO % 0.5 % (0-2.0); EOS % 2.5 % (0-4.5); HEMATOCRIT 33.7 % (35.4-49); HEMOGLOBIN 10.8 GM/dL (11.7-16.9); LYMPH % 63.1 % (8-40); MCH 31.5 pg (25.7-33.7); MEAN CELL VOLUME 98.5 fl (80-96); MEAN PLT VOLUME 8.8 fl (7.5-11.1); MONO % 4.2 % (3.8-10.2); NEUT % 29.7 % (42.8-82.8); PLATELET COUNT 237 10^3/uL (134-434); RBC 3.42 M/mm3 (4.00-5.60); RDW 14.1 % (11.9-15.9); WHITE BLOOD COUNT 6.8 K/mm3 (4.0-10.0)
[2020-11-27] MEDS ORDERED: PANTOPRAZOLE SODIUM 40 MG VIAL IVPUSH ONE (03:08)
[2020-11-27] MEDS ORDERED: MIDAZOLAM IN 0.9 % SOD.CHLORID 100 MG/100 ML PLAST..BAG IVPB SCH ×2 (03:15→20:15)
[2020-11-27] MEDS: NOREPINEPHRINE BITARTRATE 8,000 MCG in DEXTROSE 5%-WATER - 492 ML IV SCH (03:17)
[2020-11-27 03:19] LABS: CHLORIDE 104 mmol/L (98-107); SODIUM 140 mmol/L (136-145)
[2020-11-27 03:21] LABS: ANION GAP 15 MMOL/L (8-16); BLOOD UREA NITROGEN 17.7 mg/dL (7-18); CALCIUM 8.9 mg/dL (8.5-10.1); CO2 20 mmol/L (21-32); GLUCOSE,RANDOM 269 mg/dL (74-106)
[2020-11-27 03:22] LABS: ALBUMIN 3.6 g/dl (3.4-5.0)
[2020-11-27 03:24] LABS: SGPT/ALT 36 U/L (13-61)
[2020-11-27 03:25] LABS: SGOT/AST 27 U/L (15-37)
[2020-11-27 03:26] LABS: BILIRUBIN,TOTAL 1.5 mg/dL (0.2-1); TOT PROT 6.7 g/dl (6.4-8.2)
[2020-11-27 03:27] LABS: ALK PHOS 75 U/L (45-117)
[2020-11-27 03:30] LABS: LACTIC ACID 11.6 mmol/L (0.4-2.0)
[2020-11-27 03:33] LABS: URINE APPEARANCE Clear; URINE BILIRUBIN Negative (NEGATIVE); URINE COLOR Yellow; URINE GLUCOSE (UA) Negative (NEGATIVE); URINE KETONE Negative (NEGATIVE); URINE LEUK ESTERASE Negative (NEGATIVE); URINE NITRITE Negative (NEGATIVE); URINE PROTEIN 2+ (NEGATIVE)
[2020-11-27 03:33] LABS: INR 0.96 (0.83-1.09); PROTHROMBIN TIME (PATIENT) 11.8 SEC (9.7-13.0)
[2020-11-27 03:54] LABS: CREATININE 1.5 mg/dL (0.55-1.3)
[2020-11-27 04:01] LABS: VENOUS BASE EXCESS -8.1 mmol/L (-2-2); VENOUS O2 SATURATION 84.2 % (70-80)
[2020-11-27 04:03] LABS: VENOUS PCO2 75.8 mmHg (38-52); VENOUS PH 7.089 (7.310-7.410)
[2020-11-27] MEDS ORDERED: PANTOPRAZOLE SODIUM 40 MG/100 ML BAG IVPB ONE (04:14)
[2020-11-27 05:04] LABS: ANISOCYTOSIS 1+; MACROCYTOSIS 0; PLATELET ESTIMATE NORMAL; TEAR DROP CELLS 1+
[2020-11-27] MEDS ORDERED: ALBUTEROL SO4 0.083% IH SOL 2.5 MG/3 ML VIAL.NEB. NEB PRN (05:42)
[2020-11-27] MEDS ORDERED: methylPREDNISolone NA SUCC 40 MG/1 ML VIAL IVPUSH SCH ×2 (05:45→06:00)
[2020-11-27 06:11] LABS: ARTERIAL BLD GAS O2 SATURATION 99.8 mmHg (95-98); ARTERIAL BLOOD GAS PO2 436.4 mmHg (80-100); ARTERIAL BLOOD GAS pH 7.326 (7.350-7.450)
[2020-11-27 06:17] LABS: INR 0.94 (0.83-1.09); PROTHROMBIN TIME (PATIENT) 11.6 SEC (9.7-13.0)
[2020-11-27 06:18] LABS: BASO % 0.3 % (0-2.0); EOS % 0.9 % (0-4.5); HEMATOCRIT 38.8 % (35.4-49); HEMOGLOBIN 12.3 GM/dL (11.7-16.9); LYMPH % 11.4 % (8-40); MCH 30.6 pg (25.7-33.7); MCHC 31.8 g/dl (32.0-35.9); MEAN CELL VOLUME 96.4 fl (80-96); MEAN PLT VOLUME 9.2 fl (7.5-11.1); MONO % 6.6 % (3.8-10.2); NEUT % 80.8 % (42.8-82.8); PLATELET COUNT 232 10^3/uL (134-434); RBC 4.02 M/mm3 (4.00-5.60); RDW 13.8 % (11.9-15.9); WHITE BLOOD COUNT 15.3 K/mm3 (4.0-10.0)
[2020-11-27 06:19] LABS: ACTIVATED PTT 18.7 SECONDS (25.2-36.5)
[2020-11-27 06:28] LABS: CHLORIDE 103 mmol/L (98-107); SODIUM 138 mmol/L (136-145)
[2020-11-27 06:30] LABS: ALBUMIN 3.6 g/dl (3.4-5.0); CALCIUM 7.7 mg/dL (8.5-10.1)
[2020-11-27] MEDS ORDERED: SODIUM CHLORIDE 1,000 ML IV SCH (06:30)
[2020-11-27 06:31] LABS: BLOOD UREA NITROGEN 19.1 mg/dL (7-18); CO2 25 mmol/L (21-32); GLUCOSE,RANDOM 337 mg/dL (74-106); MAGNESIUM 2.6 mg/dL (1.8-2.4)
[2020-11-27 06:33] LABS: ALLENS TEST POSITIVE
[2020-11-27 06:34] LABS: CREATININE 1.8 mg/dL (0.55-1.3); SGOT/AST 159 U/L (15-37); SGPT/ALT 88 U/L (13-61)
[2020-11-27 06:34] LABS: PT'S TEMP 94.4; VENT MODE A/C; VENT RATE 25
[2020-11-27 06:35] LABS: BILIRUBIN,TOTAL 1.6 mg/dL (0.2-1); TOT PROT 6.8 g/dl (6.4-8.2)
[2020-11-27 06:36] LABS: ALK PHOS 97 U/L (45-117)
[2020-11-27 06:45] LABS: LACTIC ACID 4.1 mmol/L (0.4-2.0)
[2020-11-27 06:55] LABS: ANION GAP 10 MMOL/L (8-16)
[2020-11-27] MEDS: methylPREDNISolone NA SUCC 40 MG/1 ML VIAL IVPUSH SCH ×2 (07:07→09:34)
[2020-11-27] MEDS: HEPARIN NA (PORCINE) 5,000 UNITS/ML 1ML VIAL SQ SCH ×3 (07:08→22:30)
[2020-11-27] MEDS ORDERED: CALCIUM GLUCONATE 10% - 1,000 MG/10 ML VIAL IVPUSH ONE (07:17)
[2020-11-27] MEDS ORDERED: INSULIN REGULAR HUMAN 100 UNITS/ML *VIAL IVPUSH ONE (07:18)
[2020-11-27] MEDS ORDERED: DEXTROSE 50%-WATER - 25 GM/50 ML VIAL IVPUSH ONE (07:19)
[2020-11-27] MEDS ORDERED: SODIUM ZIRCONIUM CYCLOSILICATE (LOKELMA) 5 GM PACKET PO ONE (07:24)
[2020-11-27] MEDS ORDERED: DEXTROSE 50%-WATER - 25 GM/50 ML VIAL ONE (07:29)
[2020-11-27] MEDS: ALBUTEROL SO4 2.5/IPRATROPIUM 0.5 INH SOL 3 ML VIAL.NEB. NEB SCH ×4 (08:12→20:56)
[2020-11-27 08:59] LABS: MAGNESIUM 2.7 mg/dL (1.8-2.4)
[2020-11-27 09:00] LABS: PHOSPHOROUS 7.2 mg/dL (2.5-4.9)
[2020-11-27] MEDS: PANTOPRAZOLE SODIUM 40 MG VIAL IVPUSH SCH (09:32)
[2020-11-27 09:49] LABS: PLATELET ESTIMATE NORMAL
[2020-11-27] MEDS ORDERED: AZITHROMYCIN IVPB 500 MG/250 ML BAG IVPB SCH (10:00)
[2020-11-27] MEDS ORDERED: PT OWN MED DRAWER 7, Y5N ONE (10:17)
[2020-11-27] MEDS: MUPIROCIN 2% TOPICAL OINTMENT FOR DECOLONIZATION NS SCH ×2 (10:19→21:44)
[2020-11-27] MEDS: INSULIN SLIDING SCALE (NOVOLOG) 1 VIAL SQ SCH ×3 (12:00→21:55)
[2020-11-27 16:16] LABS: ARTERIAL BLD GAS O2 SATURATION 99.5 mmHg (95-98); ARTERIAL BLOOD GAS BASE EXCESS -2.3 mmol/L (-2-2); ARTERIAL BLOOD GAS PO2 239.9 mmHg (80-100); ARTERIAL BLOOD GAS pH 7.401 (7.350-7.450)
[2020-11-27 16:37] LABS: ALLENS TEST POSITIVE; VENT MODE A/C; VENT RATE 24
[2020-11-27 20:27] LABS: LACTIC ACID 4.4 mmol/L (0.4-2.0)
[2020-11-27] MEDS: CHLORHEXIDINE GLUCONATE 4% CLEANSER FOR DECOLONIZATION TP SCH (21:44)
[2020-11-28] MEDS: HEPARIN NA (PORCINE) 5,000 UNITS/ML 1ML VIAL SQ SCH ×3 (06:38→21:30)
[2020-11-28] MEDS: INSULIN SLIDING SCALE (NOVOLOG) 1 VIAL SQ SCH ×4 (06:39→21:33)
[2020-11-28] MEDS: NOREPINEPHRINE BITARTRATE 8,000 MCG in DEXTROSE 5%-WATER - 492 ML IV SCH (06:39)
[2020-11-28 07:51] LABS: BASO % 0.1 % (0-2.0); HEMATOCRIT 39.7 % (35.4-49); HEMOGLOBIN 13.3 GM/dL (11.7-16.9); LYMPH % 7.4 % (8-40); MCH 31.4 pg (25.7-33.7); MCHC 33.4 g/dl (32.0-35.9); MEAN CELL VOLUME 93.9 fl (80-96); MEAN PLT VOLUME 8.8 fl (7.5-11.1); MONO % 10.2 % (3.8-10.2); NEUT % 82.3 % (42.8-82.8); PLATELET COUNT 215 10^3/uL (134-434); RBC 4.23 M/mm3 (4.00-5.60); RDW 13.8 % (11.9-15.9); WHITE BLOOD COUNT 11.9 K/mm3 (4.0-10.0)
[2020-11-28 08:16] LABS: ALBUMIN 3.4 g/dl (3.4-5.0); CALCIUM 8.3 mg/dL (8.5-10.1)
[2020-11-28 08:17] LABS: BLOOD UREA NITROGEN 32.6 mg/dL (7-18); MAGNESIUM 2.6 mg/dL (1.8-2.4)
[2020-11-28 08:20] LABS: CREATININE 1.8 mg/dL (0.55-1.3); PHOSPHOROUS 2.8 mg/dL (2.5-4.9)
[2020-11-28 08:21] LABS: BILIRUBIN,TOTAL 1.7 mg/dL (0.2-1); TOT PROT 6.7 g/dl (6.4-8.2)
[2020-11-28 08:33] LABS: LACTIC ACID 2.9 mmol/L (0.4-2.0)
[2020-11-28] MEDS: ALBUTEROL SO4 2.5/IPRATROPIUM 0.5 INH SOL 3 ML VIAL.NEB. NEB SCH ×4 (09:02→20:23)
[2020-11-28] MEDS: PANTOPRAZOLE SODIUM 40 MG VIAL IVPUSH SCH (11:31)
[2020-11-28] MEDS: MUPIROCIN 2% TOPICAL OINTMENT FOR DECOLONIZATION NS SCH ×2 (11:31→21:30)
[2020-11-28] MEDS: CHLORHEXIDINE GLUCONATE 4% CLEANSER FOR DECOLONIZATION TP SCH (21:30)
[2020-11-28] MEDS ORDERED: LACTATED RINGERS SOLUTION 1000 ML INFUS.BAG IV ONE (22:27)
[2020-11-28] MEDS ORDERED: LACTATED RINGERS SOLUTION 1,000 ML/1,000 ML INFUS.BAG IV SCH (22:30)
[2020-11-29] MEDS ORDERED: CARVEDILOL 12.5 MG TABLET (FP) NGT ONE (01:00)
[2020-11-29 01:39] LABS: BLOOD UREA NITROGEN 31.7 mg/dL (7-18)
[2020-11-29 01:42] LABS: CREATININE 1.8 mg/dL (0.55-1.3)
[2020-11-29] MEDS ORDERED: SODIUM CHLORIDE 0.9% 500 ML INFUS.BAG IV ONE (03:09)
[2020-11-29] MEDS ORDERED: NOREPINEPHRINE D5W PREMIX 16,000 MCG/500 ML BAG IVPB SCH (03:15)
[2020-11-29] MEDS: NOREPINEPHRINE NS PREMIX 16,000 MCG/500 ML BAG IVPB SCH (03:15)
[2020-11-29] MEDS: VASOPRESSIN 40 UNITS in SODIUM CHLORIDE 98 ML IVPB SCH (04:14)
[2020-11-29] MEDS: HEPARIN NA (PORCINE) 5,000 UNITS/ML 1ML VIAL SQ SCH ×3 (05:21→21:39)
[2020-11-29] MEDS: INSULIN SLIDING SCALE (NOVOLOG) 1 VIAL SQ SCH ×4 (06:45→21:41)
[2020-11-29 06:58] LABS: HEMATOCRIT 37.6 % (35.4-49); HEMOGLOBIN 11.8 GM/dL (11.7-16.9); MCH 30.4 pg (25.7-33.7); MCHC 31.3 g/dl (32.0-35.9); MEAN CELL VOLUME 97.1 fl (80-96); MEAN PLT VOLUME 9.6 fl (7.5-11.1); PLATELET COUNT 193 10^3/uL (134-434); RBC 3.87 M/mm3 (4.00-5.60); RDW 14.4 % (11.9-15.9); WHITE BLOOD COUNT 11.7 K/mm3 (4.0-10.0)
[2020-11-29 07:20] LABS: CALCIUM 7.4 mg/dL (8.5-10.1)
[2020-11-29 07:21] LABS: ALBUMIN 2.8 g/dl (3.4-5.0); BLOOD UREA NITROGEN 34.2 mg/dL (7-18); MAGNESIUM 2.7 mg/dL (1.8-2.4)
[2020-11-29 07:23] LABS: PHOSPHOROUS 4.5 mg/dL (2.5-4.9)
[2020-11-29 07:24] LABS: CREATININE 1.9 mg/dL (0.55-1.3)
[2020-11-29 07:25] LABS: BILIRUBIN,TOTAL 0.9 mg/dL (0.2-1); TOT PROT 5.7 g/dl (6.4-8.2)
[2020-11-29] MEDS: ALBUTEROL SO4 2.5/IPRATROPIUM 0.5 INH SOL 3 ML VIAL.NEB. NEB SCH ×4 (07:40→21:00)
[2020-11-29] MEDS ORDERED: DEXTROSE 5%-WATER - 1,000 ML IV SCH (11:00)
[2020-11-29] MEDS: PANTOPRAZOLE SODIUM 40 MG VIAL IVPUSH SCH (11:08)
[2020-11-29] MEDS: MUPIROCIN 2% TOPICAL OINTMENT FOR DECOLONIZATION NS SCH ×2 (11:08→21:40)
[2020-11-29 18:32] LABS: CALCIUM 7.8 mg/dL (8.5-10.1)
[2020-11-29 18:33] LABS: BLOOD UREA NITROGEN 26.3 mg/dL (7-18)
[2020-11-29 19:01] LABS: CREATININE 1.5 mg/dL (0.55-1.3)
[2020-11-29] MEDS: DEXTROSE 5%-WATER - 1,000 ML IV SCH (20:36)
[2020-11-29] MEDS: CHLORHEXIDINE GLUCONATE 4% CLEANSER FOR DECOLONIZATION TP SCH (21:40)
[2020-11-30] MEDS: HEPARIN NA (PORCINE) 5,000 UNITS/ML 1ML VIAL SQ SCH ×3 (06:16→21:59)
[2020-11-30] MEDS: INSULIN SLIDING SCALE (NOVOLOG) 1 VIAL SQ SCH ×4 (06:17→22:01)
[2020-11-30] MEDS: DEXTROSE 5%-WATER - 1,000 ML IV SCH ×2 (06:17→22:00)
[2020-11-30 06:45] LABS: HEMATOCRIT 32.4 % (35.4-49); HEMOGLOBIN 10.7 GM/dL (11.7-16.9); MCH 31.5 pg (25.7-33.7); MCHC 32.9 g/dl (32.0-35.9); MEAN CELL VOLUME 95.7 fl (80-96); MEAN PLT VOLUME 9.3 fl (7.5-11.1); PLATELET COUNT 150 10^3/uL (134-434); RBC 3.39 M/mm3 (4.00-5.60); RDW 13.9 % (11.9-15.9); WHITE BLOOD COUNT 12.2 K/mm3 (4.0-10.0)
[2020-11-30 06:58] LABS: ALBUMIN 2.6 g/dl (3.4-5.0); CALCIUM 7.9 mg/dL (8.5-10.1)
[2020-11-30 06:59] LABS: BLOOD UREA NITROGEN 21.6 mg/dL (7-18); MAGNESIUM 2.8 mg/dL (1.8-2.4)
[2020-11-30 07:02] LABS: CREATININE 1.4 mg/dL (0.55-1.3)
[2020-11-30 07:03] LABS: PHOSPHOROUS 2.2 mg/dL (2.5-4.9); TOT PROT 5.7 g/dl (6.4-8.2)
[2020-11-30 07:05] LABS: BILIRUBIN,TOTAL 1.6 mg/dL (0.2-1)
[2020-11-30] MEDS: ALBUTEROL SO4 2.5/IPRATROPIUM 0.5 INH SOL 3 ML VIAL.NEB. NEB SCH ×4 (07:20→20:24)
[2020-11-30] MEDS ORDERED: POTASSIUM PHOSPHATE 20 MM in DEXTROSE 5%-WATER - 250 ML IVPB ONE (10:00)
[2020-11-30] MEDS: PANTOPRAZOLE SODIUM 40 MG VIAL IVPUSH SCH (10:39)
[2020-11-30] MEDS: MUPIROCIN 2% TOPICAL OINTMENT FOR DECOLONIZATION NS SCH ×2 (10:44→22:01)
[2020-11-30] MEDS ORDERED: VANCOMYCIN/WATER 1,250 MG/250 ML BAG IVPB ONE (18:05)
[2020-11-30] MEDS ORDERED: PIPERACILLIN/TAZOB 3.375 GM 3.375 GM in DEXTROSE 5%-WATER - 50 ML IVPB ONE (18:09)
[2020-11-30] MEDS ORDERED: VANCOMYCIN 1 GM in D5W (PRE-DOCKED) 1,000 MG/250 ML IVPB ONE (18:27)
[2020-11-30] MEDS ORDERED: PIPERACILLIN/TAZOBACTAM 3.375 GM VIAL IVPB ONE (18:45)
[2020-11-30] MEDS ORDERED: DEXTROSE 5%-WATER - 50 ML IVPB ONE (18:45)
[2020-11-30 20:07] LABS: CALCIUM 8.4 mg/dL (8.5-10.1)
[2020-11-30 20:08] LABS: BLOOD UREA NITROGEN 20.4 mg/dL (7-18)
[2020-11-30 20:11] LABS: CREATININE 1.7 mg/dL (0.55-1.3)
[2020-11-30] MEDS: NOREPINEPHRINE NS PREMIX 16,000 MCG/500 ML BAG IVPB SCH (22:00)
[2020-11-30] MEDS: VASOPRESSIN 40 UNITS in SODIUM CHLORIDE 98 ML IVPB SCH (22:00)
[2020-11-30] MEDS: CHLORHEXIDINE GLUCONATE 4% CLEANSER FOR DECOLONIZATION TP SCH (22:01)
[2020-12-01] MEDS: HEPARIN NA (PORCINE) 5,000 UNITS/ML 1ML VIAL SQ SCH ×3 (05:36→23:14)
[2020-12-01] MEDS: INSULIN SLIDING SCALE (NOVOLOG) 1 VIAL SQ SCH ×5 (05:36→23:15)
[2020-12-01 07:06] LABS: BLOOD UREA NITROGEN 27.5 mg/dL (7-18); CALCIUM 8.1 mg/dL (8.5-10.1)
[2020-12-01 07:07] LABS: ALBUMIN 2.1 g/dl (3.4-5.0)
[2020-12-01 07:11] LABS: BILIRUBIN,TOTAL 1.7 mg/dL (0.2-1); TOT PROT 5.3 g/dl (6.4-8.2)
[2020-12-01 07:13] LABS: CREATININE 2.4 mg/dL (0.55-1.3)
[2020-12-01 07:55] LABS: BASO % 0.1 % (0-2.0); EOS % 0.1 % (0-4.5); HEMATOCRIT 33.1 % (35.4-49); HEMOGLOBIN 10.7 GM/dL (11.7-16.9); LYMPH % 7.3 % (8-40); MCH 31.9 pg (25.7-33.7); MCHC 32.2 g/dl (32.0-35.9); MEAN CELL VOLUME 99.2 fl (80-96); MEAN PLT VOLUME 9.6 fl (7.5-11.1); MONO % 15.1 % (3.8-10.2); NEUT % 77.4 % (42.8-82.8); PLATELET COUNT 155 10^3/uL (134-434); RBC 3.34 M/mm3 (4.00-5.60)
[2020-12-01] MEDS: ALBUTEROL SO4 2.5/IPRATROPIUM 0.5 INH SOL 3 ML VIAL.NEB. NEB SCH ×3 (08:20→20:51)
[2020-12-01 10:17] LABS: ANISOCYTOSIS 1+; MACROCYTOSIS 1+; PLATELET ESTIMATE DECREASED
[2020-12-01] MEDS: MUPIROCIN 2% TOPICAL OINTMENT FOR DECOLONIZATION NS SCH ×2 (10:18→23:13)
[2020-12-01] MEDS: PANTOPRAZOLE SODIUM 40 MG VIAL IVPUSH SCH (10:18)
[2020-12-01] MEDS ORDERED: PIPERACILLIN/TAZOBACTAM 2.25 GM VIAL IVPB ONE ×3 (11:12→20:16)
[2020-12-01] MEDS ORDERED: DEXTROSE 5%-WATER - 50 ML IVPB ONE ×3 (11:13→20:16)
[2020-12-01] MEDS ORDERED: PIPERACILLIN/TAZOB 2.25 GM 2.25 GM in DEXTROSE 5%-WATER - 50 ML IVPB SCH (11:15)
[2020-12-01] MEDS ORDERED: VANCOMYCIN 1 GM in D5W (PRE-DOCKED) 1,000 MG/250 ML IVPB ONE (11:30)
[2020-12-01] MEDS: VASOPRESSIN 40 UNITS in SODIUM CHLORIDE 98 ML IVPB SCH (13:48)
[2020-12-01] MEDS: DEXTROSE 5%-WATER - 1,000 ML IV SCH ×2 (15:06→23:13)
[2020-12-01] MEDS ORDERED: DESMOPRESSIN ACETATE 4 MCG/ML AMP IVPB ONE (16:11)
[2020-12-01] MEDS: PIPERACILLIN/TAZOB 2.25 GM 2.25 GM in DEXTROSE 5%-WATER - 50 ML IVPB SCH (17:05)
[2020-12-01] MEDS: NOREPINEPHRINE NS PREMIX 16,000 MCG/500 ML BAG IVPB SCH (20:59)
[2020-12-01] MEDS: CHLORHEXIDINE GLUCONATE 4% CLEANSER FOR DECOLONIZATION TP SCH ×2 (22:05→23:15)
[2020-12-02] MEDS: PIPERACILLIN/TAZOB 2.25 GM 2.25 GM in DEXTROSE 5%-WATER - 50 ML IVPB SCH ×3 (01:06→17:01)
[2020-12-02] MEDS: NOREPINEPHRINE NS PREMIX 16,000 MCG/500 ML BAG IVPB SCH (06:19)
[2020-12-02] MEDS: VASOPRESSIN 40 UNITS in SODIUM CHLORIDE 98 ML IVPB SCH (06:19)
[2020-12-02] MEDS: INSULIN SLIDING SCALE (NOVOLOG) 1 VIAL SQ SCH ×4 (06:19→22:55)
[2020-12-02] MEDS: HEPARIN NA (PORCINE) 5,000 UNITS/ML 1ML VIAL SQ SCH ×3 (06:19→22:55)
[2020-12-02 06:43] LABS: BASO % 0.2 % (0-2.0); EOS % 0.2 % (0-4.5); LYMPH % 6.6 % (8-40); MCH 31.1 pg (25.7-33.7); MCHC 32.1 g/dl (32.0-35.9); MEAN PLT VOLUME 9.5 fl (7.5-11.1); MONO % 12.3 % (3.8-10.2); NEUT % 80.7 % (42.8-82.8); PLATELET COUNT 158 10^3/uL (134-434); RDW 14.2 % (11.9-15.9); WHITE BLOOD COUNT 14.9 K/mm3 (4.0-10.0)
[2020-12-02 06:59] LABS: CALCIUM 8.1 mg/dL (8.5-10.1)
[2020-12-02 07:00] LABS: ALBUMIN 2.1 g/dl (3.4-5.0); BLOOD UREA NITROGEN 36.5 mg/dL (7-18); MAGNESIUM 3.2 mg/dL (1.8-2.4)
[2020-12-02 07:03] LABS: CREATININE 2.2 mg/dL (0.55-1.3); PHOSPHOROUS 3.9 mg/dL (2.5-4.9)
[2020-12-02 07:04] LABS: TOT PROT 5.6 g/dl (6.4-8.2)
[2020-12-02] MEDS: ALBUTEROL SO4 2.5/IPRATROPIUM 0.5 INH SOL 3 ML VIAL.NEB. NEB SCH ×4 (07:50→20:39)
[2020-12-02] MEDS ORDERED: PIPERACILLIN/TAZOBACTAM 2.25 GM VIAL IVPB ONE ×3 (08:50→21:05)
[2020-12-02] MEDS ORDERED: DEXTROSE 5%-WATER - 50 ML IVPB ONE ×3 (08:50→21:06)
[2020-12-02] MEDS: PANTOPRAZOLE SODIUM 40 MG VIAL IVPUSH SCH (09:44)
[2020-12-02] MEDS ORDERED: DESMOPRESSIN ACETATE 4 MCG/ML AMP IVPB ONE (14:00)
[2020-12-02] MEDS ORDERED: PT OWN MED DRAWER 7, Y5N ONE (15:57)
[2020-12-02] MEDS: CHLORHEXIDINE GLUCONATE 4% CLEANSER FOR DECOLONIZATION TP SCH (22:55)
[2020-12-02] MEDS: DEXTROSE 5%-WATER - 1,000 ML IV SCH (22:55)
[2020-12-03] MEDS: PIPERACILLIN/TAZOB 2.25 GM 2.25 GM in DEXTROSE 5%-WATER - 50 ML IVPB SCH ×3 (01:39→17:19)
[2020-12-03] MEDS: NOREPINEPHRINE NS PREMIX 16,000 MCG/500 ML BAG IVPB SCH (05:45)
[2020-12-03] MEDS: VASOPRESSIN 40 UNITS in SODIUM CHLORIDE 98 ML IVPB SCH (05:45)
[2020-12-03] MEDS: INSULIN SLIDING SCALE (NOVOLOG) 1 VIAL SQ SCH ×4 (06:27→22:50)
[2020-12-03] MEDS: HEPARIN NA (PORCINE) 5,000 UNITS/ML 1ML VIAL SQ SCH ×3 (06:27→22:44)
[2020-12-03 07:31] LABS: BASO % 0.3 % (0-2.0); EOS % 0.6 % (0-4.5); HEMATOCRIT 29.5 % (35.4-49); HEMOGLOBIN 9.4 GM/dL (11.7-16.9); LYMPH % 8.4 % (8-40); MCH 31.2 pg (25.7-33.7); MCHC 31.8 g/dl (32.0-35.9); MEAN CELL VOLUME 98.1 fl (80-96); MEAN PLT VOLUME 9.2 fl (7.5-11.1); MONO % 9.6 % (3.8-10.2); NEUT % 81.1 % (42.8-82.8); PLATELET COUNT 152 10^3/uL (134-434); RBC 3.01 M/mm3 (4.00-5.60); RDW 13.9 % (11.9-15.9); WHITE BLOOD COUNT 12.6 K/mm3 (4.0-10.0)
[2020-12-03 07:52] LABS: BLOOD UREA NITROGEN 39.4 mg/dL (7-18); CALCIUM 8.8 mg/dL (8.5-10.1)
[2020-12-03 07:53] LABS: MAGNESIUM 3.6 mg/dL (1.8-2.4)
[2020-12-03 07:56] LABS: BILIRUBIN,TOTAL 0.9 mg/dL (0.2-1); PHOSPHOROUS 3.1 mg/dL (2.5-4.9)
[2020-12-03 07:57] LABS: TOT PROT 5.6 g/dl (6.4-8.2)
[2020-12-03] MEDS: ALBUTEROL SO4 2.5/IPRATROPIUM 0.5 INH SOL 3 ML VIAL.NEB. NEB SCH ×4 (08:20→20:22)
[2020-12-03 09:55] LABS: ANISOCYTOSIS 2+; MACROCYTOSIS 1+; PLATELET ESTIMATE NORMAL
[2020-12-03] MEDS ORDERED: PIPERACILLIN/TAZOBACTAM 2.25 GM VIAL IVPB ONE ×2 (10:07→17:15)
[2020-12-03] MEDS ORDERED: DEXTROSE 5%-WATER - 50 ML IVPB ONE ×2 (10:08→17:15)
[2020-12-03] MEDS: PANTOPRAZOLE SODIUM 40 MG VIAL IVPUSH SCH (10:35)
[2020-12-03] MEDS ORDERED: DESMOPRESSIN ACETATE 4 MCG/ML AMP IVPB SCH (12:00)
[2020-12-03] MEDS: DESMOPRESSIN ACETATE 1 MCG in SODIUM CHLORIDE 50 ML IVPB SCH ×3 (16:00→22:44)
[2020-12-03] MEDS ORDERED: PT OWN MED DRAWER 7, Y5N ONE ×2 (16:07→16:55)
[2020-12-03] MEDS: DEXTROSE 5%-WATER - 1,000 ML IV SCH (20:36)
[2020-12-03] MEDS: CHLORHEXIDINE GLUCONATE 4% CLEANSER FOR DECOLONIZATION TP SCH (22:44)
[2020-12-04] MEDS ORDERED: DEXTROSE 5%-WATER - 50 ML IVPB ONE ×3 (03:50→15:59)
[2020-12-04] MEDS ORDERED: PIPERACILLIN/TAZOBACTAM 2.25 GM VIAL IVPB ONE ×3 (03:50→15:59)
[2020-12-04] MEDS: PIPERACILLIN/TAZOB 2.25 GM 2.25 GM in DEXTROSE 5%-WATER - 50 ML IVPB SCH ×3 (03:59→17:52)
[2020-12-04] MEDS: NOREPINEPHRINE NS PREMIX 16,000 MCG/500 ML BAG IVPB SCH (04:25)
[2020-12-04] MEDS: VASOPRESSIN 40 UNITS in SODIUM CHLORIDE 98 ML IVPB SCH (04:25)
[2020-12-04] MEDS: INSULIN SLIDING SCALE (NOVOLOG) 1 VIAL SQ SCH ×3 (06:15→17:51)
[2020-12-04 06:53] LABS: BASO % 0.2 % (0-2.0); EOS % 1.8 % (0-4.5); HEMOGLOBIN 9.6 GM/dL (11.7-16.9); LYMPH % 13.6 % (8-40); MCH 30.4 pg (25.7-33.7); MEAN CELL VOLUME 98.2 fl (80-96); MEAN PLT VOLUME 9.6 fl (7.5-11.1); MONO % 12.5 % (3.8-10.2); NEUT % 71.9 % (42.8-82.8); PLATELET COUNT 147 10^3/uL (134-434); RBC 3.16 M/mm3 (4.00-5.60); RDW 14.1 % (11.9-15.9)
[2020-12-04 07:18] LABS: ALBUMIN 1.8 g/dl (3.4-5.0); CALCIUM 8.7 mg/dL (8.5-10.1)
[2020-12-04 07:19] LABS: BLOOD UREA NITROGEN 40.1 mg/dL (7-18)
[2020-12-04 07:23] LABS: BILIRUBIN,TOTAL 1.2 mg/dL (0.2-1); TOT PROT 5.5 g/dl (6.4-8.2)
[2020-12-04] MEDS: ALBUTEROL SO4 2.5/IPRATROPIUM 0.5 INH SOL 3 ML VIAL.NEB. NEB SCH ×4 (07:30→20:35)
[2020-12-04] MEDS ORDERED: PT OWN MED DRAWER 7, Y5N ONE (09:47)
[2020-12-04] MEDS: DESMOPRESSIN ACETATE 1 MCG in SODIUM CHLORIDE 50 ML IVPB SCH ×2 (09:49→22:00)
[2020-12-04] MEDS: PANTOPRAZOLE SODIUM 40 MG VIAL IVPUSH SCH (09:49)
[2020-12-04 10:53] LABS: ANISOCYTOSIS 0; HELMET CELLS 0; HOWELL-JOLLY BODIES 0; MACROCYTOSIS 0; OVALOCYTE 0; PLATELET ESTIMATE DECREASED; ROULEAU 0; SICKELED CELLS 0; TARGET CELLS 0; TEAR DROP CELLS 0; TOXIC GRANULATION 0
[2020-12-04 13:08] VITALS: BMI 26.6
[2020-12-04] MEDS: CARVEDILOL 3.125 MG TABLET (FP) NGT SCH (22:00)
[2020-12-05] MEDS: DEXTROSE 5%-WATER - 1,000 ML IV SCH ×3 (01:05→23:05)
[2020-12-05] MEDS: INSULIN SLIDING SCALE (NOVOLOG) 1 VIAL SQ SCH ×5 (01:48→22:46)
[2020-12-05] MEDS: PIPERACILLIN/TAZOB 2.25 GM 2.25 GM in DEXTROSE 5%-WATER - 50 ML IVPB SCH ×3 (02:27→19:02)
[2020-12-05] MEDS ORDERED: PIPERACILLIN/TAZOBACTAM 2.25 GM VIAL IVPB ONE ×3 (02:30→18:40)
[2020-12-05] MEDS ORDERED: DEXTROSE 5%-WATER - 50 ML IVPB ONE ×3 (02:31→18:40)
[2020-12-05 07:30] LABS: HEMOGLOBIN 9.1 GM/dL (11.7-16.9); MCH 31.3 pg (25.7-33.7); MCHC 31.3 g/dl (32.0-35.9); MEAN CELL VOLUME 99.9 fl (80-96); MEAN PLT VOLUME 9.5 fl (7.5-11.1); PLATELET COUNT 138 10^3/uL (134-434); RDW 14.1 % (11.9-15.9); WHITE BLOOD COUNT 18.9 K/mm3 (4.0-10.0)
[2020-12-05] MEDS: ALBUTEROL SO4 2.5/IPRATROPIUM 0.5 INH SOL 3 ML VIAL.NEB. NEB SCH ×3 (07:30→15:40)
[2020-12-05 07:48] LABS: BLOOD UREA NITROGEN 61.3 mg/dL (7-18); CALCIUM 7.9 mg/dL (8.5-10.1)
[2020-12-05 07:49] LABS: MAGNESIUM 3.3 mg/dL (1.8-2.4)
[2020-12-05 07:51] LABS: CREATININE 4.1 mg/dL (0.55-1.3)
[2020-12-05 07:52] LABS: PHOSPHOROUS 8.9 mg/dL (2.5-4.9)
[2020-12-05] MEDS: PANTOPRAZOLE SODIUM 40 MG VIAL IVPUSH SCH (09:55)
[2020-12-05] MEDS: DESMOPRESSIN ACETATE 1 MCG in SODIUM CHLORIDE 50 ML IVPB SCH ×2 (09:55→22:46)
[2020-12-05] MEDS: CARVEDILOL 3.125 MG TABLET (FP) NGT SCH ×2 (09:55→23:22)
[2020-12-05] MEDS ORDERED: SODIUM CHLORIDE 1,000 ML IV STA (10:37)
[2020-12-05] MEDS: CHLORHEXIDINE GLUCONATE 4% CLEANSER FOR DECOLONIZATION TP SCH (22:05)
[2020-12-06] MEDS ORDERED: PIPERACILLIN/TAZOBACTAM 2.25 GM VIAL IVPB ONE ×4 (01:14→17:49)
[2020-12-06] MEDS ORDERED: DEXTROSE 5%-WATER - 50 ML IVPB ONE ×3 (01:14→17:49)
[2020-12-06] MEDS: PIPERACILLIN/TAZOB 2.25 GM 2.25 GM in DEXTROSE 5%-WATER - 50 ML IVPB SCH ×3 (02:22→17:52)
[2020-12-06] MEDS: INSULIN SLIDING SCALE (NOVOLOG) 1 VIAL SQ SCH ×4 (07:24→22:20)
[2020-12-06 07:30] LABS: BASO % 0.3 % (0-2.0); EOS % 1.4 % (0-4.5); HEMATOCRIT 26.9 % (35.4-49); HEMOGLOBIN 8.5 GM/dL (11.7-16.9); LYMPH % 6.6 % (8-40); MCH 31.3 pg (25.7-33.7); MCHC 31.5 g/dl (32.0-35.9); MEAN CELL VOLUME 99.3 fl (80-96); MEAN PLT VOLUME 9.9 fl (7.5-11.1); MONO % 12.3 % (3.8-10.2); NEUT % 79.4 % (42.8-82.8); PLATELET COUNT 124 10^3/uL (134-434); RBC 2.71 M/mm3 (4.00-5.60); RDW 14.2 % (11.9-15.9); WHITE BLOOD COUNT 10.4 K/mm3 (4.0-10.0)
[2020-12-06 08:08] LABS: CALCIUM 7.1 mg/dL (8.5-10.1)
[2020-12-06 08:09] LABS: BLOOD UREA NITROGEN 80.6 mg/dL (7-18); MAGNESIUM 3.2 mg/dL (1.8-2.4)
[2020-12-06 08:12] LABS: CREATININE 6.6 mg/dL (0.55-1.3); PHOSPHOROUS 7.5 mg/dL (2.5-4.9)
[2020-12-06 08:13] LABS: BILIRUBIN,TOTAL 1.9 mg/dL (0.2-1)
[2020-12-06 08:14] LABS: TOT PROT 4.9 g/dl (6.4-8.2)
[2020-12-06 08:15] LABS: ALBUMIN 1.4 g/dl (3.4-5.0)
[2020-12-06] MEDS ORDERED: VASOPRESSIN 20 UNITS/ML VIAL IV ONE (09:37)
[2020-12-06] MEDS ORDERED: NOREPINEPHRINE BITARTRATE 16,000 MCG in SODIUM CHLORIDE 484 ML IV SCH (09:45)
[2020-12-06] MEDS: CARVEDILOL 3.125 MG TABLET (FP) NGT SCH ×2 (09:56→22:19)
[2020-12-06] MEDS: VASOPRESSIN 40 UNITS in SODIUM CHLORIDE 98 ML IVPB SCH (10:00)
[2020-12-06] MEDS: PANTOPRAZOLE SODIUM 40 MG VIAL IVPUSH SCH (10:00)
[2020-12-06] MEDS ORDERED: PT OWN MED DRAWER 7, Y5N ONE (10:09)
[2020-12-06 10:15] LABS: ANISOCYTOSIS 0; MACROCYTOSIS 0; PLATELET ESTIMATE DECREASED
[2020-12-06] MEDS: DESMOPRESSIN ACETATE 1 MCG in SODIUM CHLORIDE 50 ML IVPB SCH ×2 (11:12→22:19)
[2020-12-06] MEDS ORDERED: SODIUM CHLORIDE 1,000 ML IV SCH (11:45)
[2020-12-06 19:47] LABS: ANION GAP 10 MMOL/L (8-16); BLOOD UREA NITROGEN 89.8 mg/dL (7-18); CHLORIDE 103 mmol/L (98-107); CO2 27 mmol/L (21-32); GLUCOSE,RANDOM 162 mg/dL (74-106); SODIUM 140 mmol/L (136-145)
[2020-12-06 19:49] LABS: CREATININE 7.7 mg/dL (0.55-1.3)
[2020-12-06] MEDS: CHLORHEXIDINE GLUCONATE 4% CLEANSER FOR DECOLONIZATION TP SCH (22:19)
[2020-12-07] MEDS ORDERED: PIPERACILLIN/TAZOBACTAM 2.25 GM VIAL IVPB ONE ×2 (03:35→10:13)
[2020-12-07] MEDS ORDERED: DEXTROSE 5%-WATER - 50 ML IVPB ONE ×2 (03:35→10:13)
[2020-12-07] MEDS: PIPERACILLIN/TAZOB 2.25 GM 2.25 GM in DEXTROSE 5%-WATER - 50 ML IVPB SCH ×2 (03:43→10:31)
[2020-12-07] MEDS: INSULIN SLIDING SCALE (NOVOLOG) 1 VIAL SQ SCH ×2 (06:37→11:22)
[2020-12-07 07:43] LABS: CHLORIDE 100 mmol/L (98-107); SODIUM 137 mmol/L (136-145)
[2020-12-07 07:48] LABS: ALBUMIN 1.3 g/dl (3.4-5.0); ANION GAP 10 MMOL/L (8-16); BLOOD UREA NITROGEN 102.9 mg/dL (7-18); CO2 27 mmol/L (21-32)
[2020-12-07 07:49] LABS: GLUCOSE,RANDOM 182 mg/dL (74-106)
[2020-12-07 07:51] LABS: SGOT/AST 145 U/L (15-37); SGPT/ALT 27 U/L (13-61)
[2020-12-07 07:52] LABS: BILIRUBIN,TOTAL 1.5 mg/dL (0.2-1); TOT PROT 5.2 g/dl (6.4-8.2)
[2020-12-07 07:54] LABS: ALK PHOS 97 U/L (45-117)
[2020-12-07 08:06] LABS: CREATININE 8.7 mg/dL (0.55-1.3)
[2020-12-07] MEDS ORDERED: CALCIUM GLUCONATE 10% - 1,000 MG/10 ML VIAL IVPUSH ONE (08:31)
[2020-12-07] MEDS ORDERED: DEXTROSE 50%-WATER - 25 GM/50 ML VIAL IVPUSH ONE (08:31)
[2020-12-07] MEDS ORDERED: INSULIN REGULAR HUMAN 100 UNITS/ML *VIAL IVPUSH ONE (08:31)
[2020-12-07] MEDS: DESMOPRESSIN ACETATE 1 MCG in SODIUM CHLORIDE 50 ML IVPB SCH (10:00)
[2020-12-07] MEDS: PANTOPRAZOLE SODIUM 40 MG VIAL IVPUSH SCH (10:31)
[2020-12-07] MEDS: CARVEDILOL 3.125 MG TABLET (FP) NGT SCH (10:34)
[2020-12-07] MEDS ORDERED: DEXTROSE 50%-WATER - 25 GM/50 ML VIAL ONE (11:00)
[2020-12-07] MEDS ORDERED: DEXTROSE 50%-WATER 25 GM/50 ML DISP.SYRIN ONE (11:01)
[2020-12-07] MEDS: VASOPRESSIN 40 UNITS in SODIUM CHLORIDE 98 ML IVPB SCH (11:15)
[2020-12-07] MEDS ORDERED: PT OWN MED DRAWER 7, Y5N ONE (11:19)
[2020-12-07] MEDS ORDERED: ARTIFICIAL TEARS (POLYVINYL ALCOHOL) OPTH DROPS OU SCH (11:30)
[2020-12-07 13:35] VITALS: BP 120/53; PULSE 83; TEMP 96.3
== END 2020-12-07 13:25 | disposition expired | DRG 207 ==
LOC: JER 02:23 → JERBED 05:05 → JICU 06:46
PROVIDERS: ADMIT Internal Medicine Pulmonary Disease; ATTEND Internal Medicine Pulmonary Disease
PROC: 06HM33Z Insertion of Infusion Device into Right Femoral Vein, Percutaneous Approach (ICD-10-PCS; principal; 2020-11-27)
PROC: 5A1955Z Respiratory Ventilation, Greater than 96 Consecutive Hours (ICD-10-PCS; 2020-11-27)
PROC: 0CHY7BZ Insertion of Airway into Mouth and Throat, Via Natural or Artificial Opening (ICD-10-PCS; 2020-11-27)
PROC: 5A12012 Performance of Cardiac Output, Single, Manual (ICD-10-PCS; 2020-11-27)
PROC: 05HM33Z Insertion of Infusion Device into Right Internal Jugular Vein, Percutaneous Approach (ICD-10-PCS; 2020-11-27)
PROC: B543ZZA Ultrasonography of Right Jugular Veins, Guidance (ICD-10-PCS; 2020-11-27)
DX: J96.02 Acute respiratory failure with hypercapnia (principal); J44.1 Chronic obstructive pulmonary disease with (acute) exacerbation; N17.9 Acute kidney failure, unspecified; E87.2 Acidosis; G93.1 Anoxic brain damage, not elsewhere classified; I42.8 Other cardiomyopathies; I13.0 Hypertensive heart and chronic kidney disease with heart failure and stage 1 through stage 4 chronic kidney disease, or unspecified chronic kidney disease; I50.22 Chronic systolic (congestive) heart failure; I24.8 Other forms of acute ischemic heart disease; E87.0 Hyperosmolality and hypernatremia; J96.01 Acute respiratory failure with hypoxia; I46.9 Cardiac arrest, cause unspecified; D64.9 Anemia, unspecified; I48.0 Paroxysmal atrial fibrillation; N18.9 Chronic kidney disease, unspecified; E87.5 Hyperkalemia; I35.1 Nonrheumatic aortic (valve) insufficiency
CPT/HCPCS: 36415; 36600; 71045-TC-FY; 80048; 80053; 81003; 82272; 82436; 82550; 82553; 82570; 82607; 82728; 82746; 82803; 82962; 83036; 83540; 83550; 83605; 83735; 83930; 83935; 84100; 84132; 84133; 84300; 84484; 85025; 85027; 85610; 85730; 86769; 86850; 86900; 86901; 87040; 87070; 87086; 87186; 87205; 87804; 93005; 93010; 93306-TC; 94002; 94640; 99285-25; C9803; G0480; J1644; J2597; U0003; U0005